=== PATIENT | female | born 1995 | race Caucasian/White ===

== ENCOUNTER 2019-06-28 14:55 | Emergency (ER) | payer BC, SELFPAY ==
[2019-06-28 15:26] LABS: Basophils % 0.4 %; Eosinophils # 0.2 10^3/uL (0.0-0.8); Eosinophils % 2.8 %; Hemoglobin 11.9 g/dL (11.5-15.3); Lymphocytes # 3.7 10^3/uL (0.8-4.8); Lymphocytes % 43.3 %; Mean Corpuscular HGB Conc 33.1 g/dL (30.0-36.0); Mean Corpuscular Hemoglobin 27.9 pg (28.0-34.0); Mean Corpuscular Volume 84.3 fL (81-99); Mean Platelet Volume 8.5 fL (7.4-10.4); Monocytes # 0.8 10^3/uL (0.2-0.9); Monocytes % 9.2 %; Neutrophils # 3.7 10^3/uL (1.8-7.7); Neutrophils % 43.9 %; Nucleated Red Blood Cells % 0 %; Platelet Count 449 10^3/cmm (130-400); Red Blood Count 4.27 10^6/uL (4.1-5.3); Red Cell Distribution Width 13.2 % (12.1-15.1); White Blood Count 8.5 10^3/uL (4.0-10.0)
[2019-06-28 15:30] VITALS: BP 109/75; PULSE 79; RESP 18; TEMP 36.7; O2SAT 98; BMI 36.9
[2019-06-28 15:36] LABS: HCG, Serum Qual Negative (Negative)
[2019-06-28 15:41] LABS: Alanine Aminotransferase 53 U/L (0-33); Albumin Level 4.4 g/dL (3.5-5.2); Alkaline Phosphatase 77 IU/L (35-105); Anion Gap 13.8 (5-19); Aspartate Amino Transferase 29 U/L (0-32); Blood Urea Nitrogen 8 mg/dL (6-20); Calcium 9.5 mg/dL (8.5-10.5); Carbon Dioxide 25 mmol/L (22-29); Chloride 101 mmol/L (98-107); Globulin 3.1 g/dL (1.3-4.6); Glomerular Filtration Rate 154.3 mL/min (90-130); Glucose 90 mg/dL (65-115); Potassium 3.8 mmol/L (3.5-5.1); Sodium 136 mmol/L (136-145); Total Bilirubin 0.3 mg/dL (0.15-1.2); Total Protein 7.5 g/dL (6.6-8.7)
[2019-06-28 16:28] VITALS: BP 125/79; PULSE 78; RESP 15; O2SAT 98
[2019-06-28] MEDS: ondansetron 4 MG Tablet PO (16:39)
--- NOTE | 2019-06-28 16:40 | ED_ITS ---
Entered by Lucía Quijano, acting as scribe for Harvey Duggan MD Jun 28, 2019 14:55 HPI - Female Genitourinary General: Chief complaint: Vaginal Bleeding Stated complaint: VAG BLEEDING, N/DIZZY Time Seen by Provider: 06/28/19 16:35 Source: patient and family Mode of arrival: ambulatory Limitations: no limitations History of Present Illness: HPI Narrative: 23 yo female presents with vaginal bleeding. pt states she has had bleeding since having a baby and breast feeding. pt states she feels tired and having nausea. pt denies any other symptoms at this time. MD elicited complaint: vaginal bleeding Onset (ago): day(s) (4 days) Location of symptoms: vaginal Severity: moderate Quality of pain: cramping and sharp Consistency: constant and progressively worsening Vaginal bleeding: clots Exacerbating factors: none Relieving factors: none Associated symptoms: Reports nausea and other (dizziness); Deny headache(s) Patient : No Date of Last Menstrual Period: 06/28/19 Review of Systems Const: Denies: fever, chills, body aches or change in appetite Eyes: Denies: blurry vision or eye discomfort ENMT: Denies: throat pain or dental pain Card: Denies: chest pain Resp: Denies: shortness of breath GI: Reports: nausea : Reports: vaginal bleeding; Denies: painful urination Musc: Denies: neck pain or back pain Skin/Breast: Denies: rash Neuro: Denies: headache Psych: Denies: depression José/Lymph: Denies: easy bruising All/Imm: Denies: hives PFSH ED PFSH: Social History Smoking and tobacco status: never smoked Female Reproductive History: Date of last menstrual period: 06/28/19 Physical Exam Const: COMMON NORMALS: no apparent distress, oriented x3 and healthy appearing HENMT: COMMON NORMALS: normocephalic and head/scalp atraumatic HEAD & SCALP: normocephalic and atraumatic Eye: COMMON NORMALS: PERRL and EOMs intact bilaterally PUPIL: Yes PERRL Neck/C-Spine: COMMON NORMALS: full ROM and supple Chest: COMMONS NORMALS: inspection of chest normal and palpation of chest normal Resp: COMMON NORMALS: normal respiratory effort, no retractions, no use of accessory muscles and clear to auscultation bilaterally AUSCULTATION: clear to auscultation bilaterally Cardio: COMMON NORMALS: regular rate, regular rhythm and no murmurs RATE: regular rate RHYTHM: regular rhythm : OTHER: Slight amount of blood in vaginal vault with no heavy bleeding or clot Extremity: COMMON NORMALS: normal to inspection and full ROM Neuro: COMMON NORMALS: oriented x3, moves all extremities and no focal motor deficits Psych: COMMON NORMALS: mental status grossly normal, thought process normal and cooperative THOUGHT PROCESS: normal thought process Skin: COMMON NORMALS: no rashes or lesions noted and no wounds GENERAL SKIN EXAM: no rashes or lesions noted Course Vital Signs: Vital signs: Vital Signs Temperature 98.1 F 06/28/19 15:30 Pulse Rate 79 06/28/19 17:01 Respiratory Rate 15 06/28/19 16:28 Blood Pressure 112/79 06/28/19 17:01 Pulse Oximetry 98 06/28/19 16:28 MDM - Female MDM Narrative: Medical decision making narrative: Patient presents here with vaginal bleeding that is likely menstruation. Patient's not and her hemoglobin is normal. Orthostatics are normal. Pelvic showed no large amount of bleeding. I spoke to her PCP she is stable for discharge and is to follow-up with him in 1 to 3 days. She is return to the ER if worsening. She understands and agrees to the plan. Lab Data: Labs: Lab Results 06/28/19 06/28/19 06/28/19 Range/Units 04:13 15:17 15:17 WBC 8.5 (4.0-10.0) 10^3/ uL RBC 4.27 (4.1-5.3) 10^6/u L Hgb 11.9 (11.5-15.3) g/dL Hct 36.0 L (37.0-47.0) % MCV 84.3 (81-99) fL MCH 27.9 L (28.0-34.0) pg MCHC 33.1 (30.0-36.0) g/dL RDW 13.2 (12.1-15.1) % Plt Count 449 H (130-400) 10^3/c mm MPV 8.5 (7.4-10.4) fL Neut % (Auto) 43.9 % Lymph % (Auto) 43.3 % Rusk % (Auto) 9.2 % Eos % (Auto) 2.8 % Baso % (Auto) 0.4 % Neut # (Auto) 3.7 (1.8-7.7) 10^3/u L Lymph # (Auto) 3.7 (0.8-4.8) 10^3/u L Rusk # (Auto) 0.8 (0.2-0.9) 10^3/u L Eos # (Auto) 0.2 (0.0-0.8) 10^3/u L Baso # (Auto) 0.0 (0.0-0.1) 10^3/u L Nucleated RBC % (a uto) 0 % Nucleated RBCs # 0.0 /100WBC Sodium 136 (136-145) mmol/L Potassium 3.8 (3.5-5.1) mmol/L Chloride 101 (98-107) mmol/L Carbon Dioxide 25 (22-29) mmol/L Anion Gap 13.8 (5-19) BUN 8 (6-20) mg/dL Creatinine 0.5 (0.5-0.9) mg/dL GFR Calculation 154.3 H (90-130) mL/min Glucose 90 (65-115) mg/dL Calcium 9.5 (8.5-10.5) mg/dL Total Bilirubin 0.3 (0.15-1.2) mg/dL AST 29 (0-32) U/L ALT 53 H (0-33) U/L Alkaline Phosphata se 77 (35-105) IU/L Total Protein 7.5 (6.6-8.7) g/dL Albumin 4.4 (3.5-5.2) g/dL Globulin 3.1 (1.3-4.6) g/dL HCG, Qual Negative (Negative) Urine Color (Yellow) Urine Appearance (CLEAR) Urine pH (5-7) Ur Specific Gravit y (1.005-1.030) Urine Protein (Negative) Urine Glucose (UA) (Normal) Urine Ketones (Negative) Urine Blood (Negative) Urine Nitrate (Negative) Urine Bilirubin (NEGATIVE) Urine Urobilinogen (Negative) mg/dL Ur Leukocyte Felicitas ase (Negative) Urine RBC (0-2) /hpf Urine WBC (0-5) /hpf Ur Squamous Epith Cells (0-5) Urine Bacteria (NONE) 06/28/19 Range/Units 16:36 WBC (4.0-10.0) 10^3/ uL RBC (4.1-5.3) 10^6/u L Hgb (11.5-15.3) g/dL Hct (37.0-47.0) % MCV (81-99) fL MCH (28.0-34.0) pg MCHC (30.0-36.0) g/dL RDW (12.1-15.1) % Plt Count (130-400) 10^3/c mm MPV (7.4-10.4) fL Neut % (Auto) % Lymph % (Auto) % Rusk % (Auto) % Eos % (Auto) % Baso % (Auto) % Neut # (Auto) (1.8-7.7) 10^3/u L Lymph # (Auto) (0.8-4.8) 10^3/u L Rusk # (Auto) (0.2-0.9) 10^3/u L Eos # (Auto) (0.0-0.8) 10^3/u L Baso # (Auto) (0.0-0.1) 10^3/u L Nucleated RBC % (a uto) % Nucleated RBCs # /100WBC Sodium (136-145) mmol/L Potassium (3.5-5.1) mmol/L Chloride (98-107) mmol/L Carbon Dioxide (22-29) mmol/L Anion Gap (5-19) BUN (6-20) mg/dL Creatinine (0.5-0.9) mg/dL GFR Calculation (90-130) mL/min Glucose (65-115) mg/dL Calcium (8.5-10.5) mg/dL Total Bilirubin (0.15-1.2) mg/dL AST (0-32) U/L ALT (0-33) U/L Alkaline Phosphata se (35-105) IU/L Total Protein (6.6-8.7) g/dL Albumin (3.5-5.2) g/dL Globulin (1.3-4.6) g/dL HCG, Qual (Negative) Urine Color Yellow (Yellow) Urine Appearance Clear (CLEAR) Urine pH 6.5 (5-7) Ur Specific Gravit y 1.015 (1.005-1.030) Urine Protein Neg (Negative) Urine Glucose (UA) Norm (Normal) Urine Ketones Negative (Negative) Urine Blood 3+ H (Negative) Urine Nitrate Negative (Negative) Urine Bilirubin Neg (NEGATIVE) Urine Urobilinogen Norm (Negative) mg/dL Ur Leukocyte Felicitas ase Negative (Negative) Urine RBC 25-40 H (0-2) /hpf Urine WBC None (0-5) /hpf Ur Squamous Epith Cells 0-4 H (0-5) Urine Bacteria 1+ H (NONE) Discharge Plan Discharge Patient Disposition: Home, Self-Care Clinical Impression: Vaginal bleeding Condition: Stable Prescriptions: New Zofran 4 mg tablet 4 mg PO QID PRN (Reason: nausea and vomiting) Qty: 14 RF: 0 No Action divalproex [Depakote] 250 mg Tablet,Delayed Release (Dr/Ec) 250 mg PO DAILY RF: 0 Discharge Orders: Discharge Order (Routine); Ordered 06/28/19 Ordered By: Harvey Duggan Referrals: Kp Etienne MD [Family Provider] - 4-7 days Discharge Diet: Advance as tolerated Discharge Activity: Resume usual activity Patient Instructions: Menstruation (ED) Coding Level of Care Code ED Back Hand for Chg Fwd Exam Comprehensive The documentation recorded by the Samm abreu Bridget Annette, accurately reflects the service I personally performed and the decisions made by Urban encarnacion Korby, MD Jun 28, 2019 14:55
[2019-06-28 17:00] VITALS: BP 115/84; PULSE 77
[2019-06-28 17:01] VITALS: BP 108/74; BP 112/79; PULSE 79
[2019-06-28 17:07] LABS: Urine Appearance Clear (CLEAR); Urine Color Yellow (Yellow)
[2019-06-28 17:08] LABS: Add Urine Microscopic? YES; Bilirubin Urine Neg (NEGATIVE); Blood Urine 3+ (Negative); Glucose Urine UA Norm (Normal); Ketones Urine Negative (Negative); Leukocyte Esterase Urine Negative (Negative); Nitrate Urine Negative (Negative); Protein Urine Neg (Negative); RBC Urine 25-40 /hpf (0-2); Specific Gravity, Urine 1.015 (1.005-1.030); Urobilinogen Urine Norm (Negative); pH Urine 6.5 (5-7)
[2019-06-28 17:09] LABS: Bacteria Urine 1+; Squamous Epithelial Cell Urine 0-4 (0-5)
[2019-06-28 17:10] LABS: Add Urine Culture? Yes
[2019-06-28 17:34] VITALS: BP 115/74; PULSE 71; RESP 16; O2SAT 100
== END 2019-06-28 17:35 | disposition home or self-care (01) ==
PROVIDERS: Physician Assistant; Emergency Provider Emergency Medicine; Family Provider Family Medicine
DX: N93.9 Abnormal uterine and vaginal bleeding, unspecified (principal)
CPT/HCPCS: 36415; 80053; 81001; 84703; 85025; 87086; 99281; 99283; A9270; E0352; Q0162

== ENCOUNTER → 2019-09-25 15:27 | Outpatient (BNVA) | payer OTHER, SELFPAY | PROVIDERS: Family Provider Family Medicine; Visit Provider Nurse Practitioner Family | DX: M25.532 Pain in left wrist (principal) | CPT/HCPCS: 73110 ==

== ENCOUNTER 2019-12-16 06:52 | Emergency (ER) | payer OTHER, SELFPAY ==
[2019-12-16 06:58] VITALS: BP 124/67; PULSE 89; RESP 15; TEMP 36.2; O2SAT 98; BMI 36.0
--- NOTE | 2019-12-16 07:01 | ED_ITS ---
HPI - Headache General: Chief Complaint: Headache Stated Complaint: MIGRAINE Time Seen by Provider: 12/16/19 06:55 Source: patient Mode of arrival: ambulatory Limitations: no limitations History of Present Illness: HPI Narrative: Amber is a nice 24-year-old female who comes in complaining of migraine headaches for the past 2 months. She states that the headache she has now started at 4:00 yesterday and gradually worsened and she cannot get it to stop. She is been seeing her primary care physician for these and he has termed the migraines but she is still scheduled to have an MRI of the brain. Patient denies this being a sudden onset thunderclap type headache. She has no fever or severe neck pain or stiffness. He has nausea but no vomiting. She has light and sound sensitivity. At times it will cause her vision to become blurry. Patient was told if her symptoms ever lasted this long she needed to come to the ER to get checked out. Associated symptoms: Reports nausea; Deny chest pain, confusion, diaphoresis, fever(s), lightheadedness, malaise, pre-syncope, rash, syncope or vomiting Review of Systems Const: Denies: fever(s), chills, body aches, fatigue, malaise or diaphoresis Eyes: Reports: blurry vision; Denies: change in vision, blind spots, photophobia, eye discharge or eye redness ENMT: Denies: throat pain, odynophagia, hoarseness, swelling of lips/tongue, oral sores, ear or mastoid pain, ear discharge, change in hearing or nasal discharge Card: Denies: chest pain, palpitations, irregular heart rhythm, edema, lightheadedness, syncope, pre-syncope, dyspnea on exertion or orthopnea Resp: Denies: dyspnea, productive cough, non-productive cough, wheezing, hemoptysis or chest congestion GI: Reports: nausea; Denies: abdominal pain, vomiting, hematemesis, coffee ground emesis, heartburn, diarrhea, constipation, GI cramping, hematochezia or melena : Denies: flank pain, dysuria, urinary frequency, urinary urgency or hematuria Musc: Denies: neck pain, back pain, extremity pain, extremity swelling, joint pain, joint swelling, joint redness, joint warmth or joint stiffness Skin/Breast: Denies: rash, pruritus, erythema, skin tenderness or jaundice Neuro: Reports: headache(s); Denies: numbness in extremities, weakness in extremities, sensory changes, lack of coordination, difficulty walking, dizziness, vertigo, confusion, Slurred speech present or seizure-like activity José/Lymph: Denies: easy bruising, easy bleeding, petechiae, purpura or enlarged lymph nodes All/Imm: Denies: urticaria, throat swelling, tongue swelling, facial swelling or acute wheezing PFSH ED PFSH: Medical History (Updated 12/16/19 @ 08:09 by Sofia Marsh) No pertinent past medical history Surgical History (Updated 12/16/19 @ 07:03 by Sofia Marsh) S/P tonsillectomy Family History (Updated 12/16/19 @ 07:03 by Sofia Marsh) Other Migraines Social History (Updated 12/16/19 @ 07:03 by Sofia Marsh) Smoking and tobacco status: never smoked Alcohol intake: never Substance/Drug Use: never Female Reproductive History: Date of last menstrual period: 06/28/19 Physical Exam Const: COMMON NORMALS: no acute distress, patient oriented x3, no limitations, healthy appearing and well nourished GENERAL APPEARANCE: cooperative, well kempt and well developed HENMT: COMMON NORMALS: normocephalic, atraumatic, external ears normal, EAC's normal and Normal external nose present HEAD & SCALP: normal to inspection, normocephalic and atraumatic FACE & SINUS: normal facial exam and face symmetric NOSE: Normal external nose present and Normal nares present EXTERNAL EAR: Yes external ears normal EXTERNAL AUDITORY CANAL: EAC's normal MOUTH: Normal oral and palatal mucosa present, lip normal and tongue normal Eye: COMMON NORMALS: Equal, round and reactive pupils present and conjunctivae normal GENERAL EYE: appearance normal, both eyes and all related structures ALIGNMENT: Yes alignment normal PERIORBITAL: periorbital findings normal EYELID: eyelids normal CONJUNCTIVA: Yes conjunctivae normal SCLERA: sclerae normal PUPIL: Yes Equal, round and reactive pupils present Neck/C-Spine: COMMON NORMALS: full ROM, no lymphadenopathy, supple, no meningeal signs and no JVD GENERAL: Yes normal visual inspection and Yes trachea midline Chest: COMMONS NORMALS: normal inspection of the chest and normal palpation of entire chest wall Resp: COMMON NORMALS: normal respiratory effort, No retractions and No use of accessory muscles EFFORT & INSPECTION: Yes able to speak in complete sentences and Yes symmetric chest movement AUSCULTATION: no crackles, no rales, no rhonchi and no wheezes Cardio: COMMON NORMALS: no JVD, regular rate, regular rhythm, S1 normal heart sound present and S2 normal heart sound present RATE: regular rate RHYTHM: regular rhythm HEART SOUNDS: S1 normal heart sound present, S2 normal heart sound present, no click, no gallops, no murmurs, no rubs and abnormal split S2 GI: COMMON NORMALS: Soft to palpation and No hepatosplenomegaly present PALPATION: Yes Soft to palpation, No Tenderness to palpation present (GI), No Guarding due to palpation present (GI), No Rigid due to palpation, Yes No hepatosplenomegaly present, No Hernia present, No Palpable mass present and No Pulsatile mass present : COMMON NORMALS: Yes no CVA tenderness BLADDER/KIDNEY EXAM: Yes no CVA tenderness EXTERNAL FEMALE EXAM: No Hernia present Back/Pelvis: COMMON NORMALS: no CVA tenderness, thoracic and lumbar spine normal to inspection, no thoracic nor lumbar tenderness and thoraco-lumbar ROM normal Extremity: COMMON NORMALS: normal to inspection, full ROM, capillary refill normal, no joint enlargement, no clubbing, cyanosis or edema and no calf tenderness Neuro: COMMON NORMALS: patient oriented x3, CN's II-XII intact bilaterally, moves all extremities, no focal motor deficits and no sensory deficits noted MENINGEAL SIGNS: Yes no meningeal signs SPEECH: speech normal Psych: COMMON NORMALS: mental status grossly normal, Normal thought process present, cooperative, normal affect, speech normal and activity/motor behavior normal APPEARANCE: Yes well kempt SPEECH: Yes normal speech THOUGHT PROCESS: Normal thought process present Skin: COMMON NORMALS: no rashes or lesions noted, turgor normal, no jaundice, no petechiae and no mottling GENERAL SKIN EXAM: no rashes or lesions noted and turgor normal Course Vital Signs: Vital signs: Vital Signs Temperature 97.8 F 12/16/19 08:38 Pulse Rate 76 12/16/19 08:38 Respiratory Rate 20 H 12/16/19 08:38 Blood Pressure 95/55 12/16/19 08:38 Pulse Oximetry 97 12/16/19 08:15 MDM - Headache MDM Narrative: Medical decision making narrative: Arrival -Amber is a 24-year-old female who comes in complaining of a headache lasting just over 12 hours. She is recently diagnosed with migraines and has had this problem for the past 4 months. The patient is able to talk and communicate and does not have a fever. I see no sign of meningitis. This headache was not a sudden onset thunderclap type headache and so I doubt subarachnoid hemorrhage. Because the patient has had new onset headaches I will go ahead and perform imaging of her brain as she has had none up to this point. I will give her typical migraine medications to help with her pain and discomfort. Discharge Yael is a nice 24-year-old female who comes in complaining of a headache that is similar to headache she has had for the past 2 months. She has not had any imaging up to this point but a CT of the head shows no acute intracranial pathology. There is a suggestion of sphenoid sinusitis which I will put her on antibiotics for. Clinically the patient has no sign of subarachnoid hemorrhage or meningitis. I see no evidence of pseudotumor cerebri. The patient is feeling tremendously better and states her headache is completely gone after the migraine cocktail that I have given her. She agrees to follow-up with Dr. Etienne and continue the outpatient work-up for migraine. Lab Data: Labs: Lab Results 12/16/19 12/16/19 12/16/19 Range/Units 07:04 07:04 07:04 WBC 9.1 (4.0-10.0) 10^3/ uL RBC 4.36 (4.1-5.3) 10^6/u L Hgb 11.6 (11.5-15.3) g/dL Hct 36.0 L (37.0-47.0) % MCV 82.6 (81-99) fL MCH 26.6 L (28.0-34.0) pg MCHC 32.2 (30.0-36.0) g/dL RDW 13.2 (12.1-15.1) % Plt Count 502 H (130-400) 10^3/c mm MPV 8.9 (7.4-10.4) fL Neut % (Auto) 43.4 % Lymph % (Auto) 44.9 % Mcnairy % (Auto) 7.5 % Eos % (Auto) 3.4 % Baso % (Auto) 0.6 % Neut # (Auto) 3.94 (1.8-7.7) 10^3/u L Lymph # (Auto) 4.1 (0.8-4.8) 10^3/u L Mcnairy # (Auto) 0.7 (0.2-0.9) 10^3/u L Eos # (Auto) 0.3 (0.0-0.8) 10^3/u L Baso # (Auto) 0.1 (0.0-0.1) 10^3/u L Nucleated RBC % (a uto) 0 % Nucleated RBCs # 0.0 /100WBC Sodium 139 (136-145) mmol/L Potassium 3.9 (3.5-5.1) mmol/L Chloride 104 (98-107) mmol/L Carbon Dioxide 25 (22-29) mmol/L Anion Gap 13.9 (5-19) BUN 12 (6-20) mg/dL Creatinine 0.6 (0.5-0.9) mg/dL GFR Calculation 123.9 (90-130) mL/min Glucose 113 (65-115) mg/dL Calculated Osmolal ity 285 (285-295) mOsm/k g Calcium 9.2 (8.5-10.5) mg/dL Total Bilirubin 0.3 (0.15-1.2) mg/dL AST 28 (0-32) U/L ALT 49 H (0-33) U/L Alkaline Phosphata se 76 (35-105) IU/L Total Protein 7.5 (6.6-8.7) g/dL Albumin 4.5 (3.5-5.2) g/dL Globulin 3.0 (1.3-4.6) g/dL HCG, Qual Negative (Negative) Urine Color (Yellow) Urine Appearance (CLEAR) Urine pH (5-7) Ur Specific Gravit y (1.005-1.030) Urine Protein (Negative) Urine Glucose (UA) (Normal) Urine Ketones (Negative) Urine Blood (Negative) Urine Nitrate (Negative) Urine Bilirubin (NEGATIVE) Urine Urobilinogen (Negative) mg/dL Ur Leukocyte Felicitas ase (Negative) Urine RBC (0-2) /hpf Urine WBC (0-5) /hpf Ur Squamous Epith Cells (0-5) Amorphous Sediment Urine Bacteria (NONE) 12/16/19 Range/Units 08:07 WBC (4.0-10.0) 10^3/ uL RBC (4.1-5.3) 10^6/u L Hgb (11.5-15.3) g/dL Hct (37.0-47.0) % MCV (81-99) fL MCH (28.0-34.0) pg MCHC (30.0-36.0) g/dL RDW (12.1-15.1) % Plt Count (130-400) 10^3/c mm MPV (7.4-10.4) fL Neut % (Auto) % Lymph % (Auto) % Mcnairy % (Auto) % Eos % (Auto) % Baso % (Auto) % Neut # (Auto) (1.8-7.7) 10^3/u L Lymph # (Auto) (0.8-4.8) 10^3/u L Mcnairy # (Auto) (0.2-0.9) 10^3/u L Eos # (Auto) (0.0-0.8) 10^3/u L Baso # (Auto) (0.0-0.1) 10^3/u L Nucleated RBC % (a uto) % Nucleated RBCs # /100WBC Sodium (136-145) mmol/L Potassium (3.5-5.1) mmol/L Chloride (98-107) mmol/L Carbon Dioxide (22-29) mmol/L Anion Gap (5-19) BUN (6-20) mg/dL Creatinine (0.5-0.9) mg/dL GFR Calculation (90-130) mL/min Glucose (65-115) mg/dL Calculated Osmolal ity (285-295) mOsm/k g Calcium (8.5-10.5) mg/dL Total Bilirubin (0.15-1.2) mg/dL AST (0-32) U/L ALT (0-33) U/L Alkaline Phosphata se (35-105) IU/L Total Protein (6.6-8.7) g/dL Albumin (3.5-5.2) g/dL Globulin (1.3-4.6) g/dL HCG, Qual (Negative) Urine Color Yellow (Yellow) Urine Appearance Sl hazy (CLEAR) Urine pH 5 (5-7) Ur Specific Gravit y 1.010 (1.005-1.030) Urine Protein Neg (Negative) Urine Glucose (UA) Norm (Normal) Urine Ketones Negative (Negative) Urine Blood Neg (Negative) Urine Nitrate Negative (Negative) Urine Bilirubin Neg (NEGATIVE) Urine Urobilinogen Norm (Negative) mg/dL Ur Leukocyte Felicitas ase 1+ H (Negative) Urine RBC None (0-2) /hpf Urine WBC 15-25 H (0-5) /hpf Ur Squamous Epith Cells 15-25 H (0-5) Amorphous Sediment Not Reportable Urine Bacteria 2+ H (NONE) Imaging Data^: CT Head: Radiologist's impression: [place] [address] CT Scan Report Signed Patient: Amber Walker Unit #: [id number] : 1995 Age/Sex: 24 / F ADM Date: 12/16/19 Loc: ER Room/Bed: Attending Dr: Ordering Provider/Ordering MD: Sofia Marsh DO Date of Service: 12/16/19 Procedure(s): CT head wo con* [id number] Accession Number(s): [id number] Report Number: [id number] PROCEDURE INFORMATION: Exam: CT Head Without Contrast Exam date and time: 12/16/2019 7:01 AM Age: 24 years old Clinical indication: Pain; Headache; Migraine; Aura effect not specified; Other: Unknown; Additional info: New onset headaches TECHNIQUE: Imaging protocol: Computed tomography of the head without contrast. Radiation optimization: All CT scans at this facility use at least one of these dose optimization techniques: automated exposure control; mA and/or kV adjustment per patient size (includes targeted exams where dose is matched to clinical indication); or iterative reconstruction. COMPARISON: No relevant prior studies available. RADIATION DOSE METRICS: Total DLP (mGy-cm): 789.35 FINDINGS: Brain: Symmetric caliber of the cortical sulci. Normal simpson-white matter differentiation. No acute cortical infarct, mass effect, or intracranial hemorrhage. Ventricles: Normal configuration of the ventricles. Bones/joints: No acute calvarial pathology. Sinuses: Inflammatory change in the right sphenoid sinus. Mastoid air cells: No mastoid effusion. Soft tissues: Unremarkable soft tissues. CT/CT head wo con* [id number] IMPRESSION: Sphenoid sinusitis, without acute intracranial pathology. Radiation Dose CTDIVOL = (mGy): DLP = 789.35 (mGy-cm) Dictated By: Yariel Shanks MD Signed By: Yariel Shanks MD Signed Date/Time: 12/16/19801 DD/ 0 Discharge Plan Discharge Patient Disposition: Home Clinical Impression: Migraine Qualifiers: Migraine type: unspecified Status migrainosus presence: with status migrainosus Intractability: not intractable Qualified Code(s): G43.901 - Migraine, unspecified, not intractable, with status migrainosus Sinusitis Qualifiers: Sinusitis location: sphenoidal Chronicity: subacute Qualified Code(s): J01.30 - Acute sphenoidal sinusitis, unspecified Condition: Stable Discharge Orders: Discharge Order (Routine); Ordered 12/16/19 Ordered By: Sofia Marsh Referrals: Kp Etienne MD [Primary Care Provider] - 1-3 days Discharge Diet: Advance as tolerated Discharge Activity: Increase activity as tolerated Patient Instructions: Sinusitis (ED), Migraine Headache (ED), Acute Headache (ED) Activity Restrictions/Additional Instructions: Please return to the ER immediately for any of the signs or symptoms listed on your discharge instruction sheets, worsening/changing of your symptoms, you are not getting better as quickly as expected, or for ANY other cause or concerns. Please return to the ER immediately for any of the signs and or symptoms listed on your discharge instruction sheet or for any other cause for concern. Discharge Date/Time: 12/16/19 08:40 Coding Level of Care Code ED Service Administrator for Chg Fwd Exam Comprehensive
[2019-12-16 07:08] VITALS: BP 124/67; PULSE 88; RESP 18; O2SAT 97
[2019-12-16 07:14] LABS: Basophils # 0.1 10^3/uL (0.0-0.1); Basophils % 0.6 %; Eosinophils # 0.3 10^3/uL (0.0-0.8); Eosinophils % 3.4 %; Hemoglobin 11.6 g/dL (11.5-15.3); Lymphocytes # 4.1 10^3/uL (0.8-4.8); Lymphocytes % 44.9 %; Mean Corpuscular HGB Conc 32.2 g/dL (30.0-36.0); Mean Corpuscular Hemoglobin 26.6 pg (28.0-34.0); Mean Corpuscular Volume 82.6 fL (81-99); Mean Platelet Volume 8.9 fL (7.4-10.4); Monocytes # 0.7 10^3/uL (0.2-0.9); Monocytes % 7.5 %; Neutrophils # 3.94 10^3/uL (1.8-7.7); Neutrophils % 43.4 %; Nucleated Red Blood Cells % 0 %; Platelet Count 502 10^3/cmm (130-400); Red Blood Count 4.36 10^6/uL (4.1-5.3); Red Cell Distribution Width 13.2 % (12.1-15.1); White Blood Count 9.1 10^3/uL (4.0-10.0)
[2019-12-16] MEDS: metoclopramide 5 mg/mL SDV 2 mL 10 MG IV (07:29)
[2019-12-16] MEDS: diphenhydrAMINE 50 mg/mL SDV 1mL IVP (07:29)
[2019-12-16] MEDS: sodium chloride 0.9% 1,000 ML 100 ML IV (07:30)
[2019-12-16 07:40] LABS: HCG, Serum Qual Negative (Negative)
[2019-12-16 07:48] LABS: Alanine Aminotransferase 49 U/L (0-33); Albumin Level 4.5 g/dL (3.5-5.2); Alkaline Phosphatase 76 IU/L (35-105); Anion Gap 13.9 (5-19); Aspartate Amino Transferase 28 U/L (0-32); Blood Urea Nitrogen 12 mg/dL (6-20); Calcium 9.2 mg/dL (8.5-10.5); Carbon Dioxide 25 mmol/L (22-29); Chloride 104 mmol/L (98-107); Glomerular Filtration Rate 123.9 mL/min (90-130); Glucose 113 mg/dL (65-115); Osmolality Calculated 285 mOsm/kg (285-295); Potassium 3.9 mmol/L (3.5-5.1); Sodium 139 mmol/L (136-145); Total Bilirubin 0.3 mg/dL (0.15-1.2); Total Protein 7.5 g/dL (6.6-8.7)
[2019-12-16 08:15] VITALS: BP 106/54; PULSE 91; RESP 18; O2SAT 97
[2019-12-16] MEDS: levoFLOXacin 500 mg Tablet PO (08:15)
[2019-12-16 08:22] LABS: Add Urine Microscopic? YES; Bilirubin Urine Neg (NEGATIVE); Blood Urine Neg (Negative); Glucose Urine UA Norm (Normal); Ketones Urine Negative (Negative); Leukocyte Esterase Urine 1+ (Negative); Nitrate Urine Negative (Negative); Protein Urine Neg (Negative); Urine Appearance SL Hazy (CLEAR); Urine Color Yellow (Yellow); Urobilinogen Urine Norm (Negative); pH Urine 5 (5-7)
[2019-12-16 08:26] LABS: Add Urine Culture? No; Bacteria Urine 2+; Squamous Epithelial Cell Urine 15-25 (0-5); WBC Urine 15-25 /hpf (0-5)
[2019-12-16 08:38] VITALS: BP 95/55; PULSE 76; RESP 20; TEMP 36.6
== END 2019-12-16 08:40 | disposition home or self-care (01) ==
PROVIDERS: Emergency Provider Emergency Medicine; PCP Family Medicine
DX: G43.901 Migraine, unspecified, not intractable, with status migrainosus (principal); J01.30 Acute sphenoidal sinusitis, unspecified
CPT/HCPCS: 12345; 70450; 80053; 81001; 84703; 85025; 96361; 96374; 96375; 99283; J0131; J1200; J2765; J7030

== ENCOUNTER → 2020-01-15 11:49 | Outpatient (BNVA) | payer SELFPAY | PROVIDERS: PCP Family Medicine; Visit Provider Internal Medicine | DX: J06.9 Acute upper respiratory infection, unspecified (principal) | CPT/HCPCS: 87635 ==

== ENCOUNTER 2020-02-01 13:41 | Outpatient (CLI) | payer OTHER, SELFPAY ==
--- NOTE | 2020-02-01 13:49 | US_ITS ---
WS: [id number] OB ultrasound, 02/01/2020 Clinical Data: SUPERVISION NORMAL Comparison: None. Findings: There is a single interuterine . heart rate is 131 beats per minute. There is a 0.48 cm yolk sac present. The crown-rump length measured 0.9 cm and the gestational sac cm . The estimated gestational age 6w6d is with an GUNJAN of approximately 09/20/2020. The left ovary was not imaged The right ovary measured 2.14 cm with a 1.64 cm cyst. There is no fluid in the cul-de-sac. US/US OB <= 14 weeks fetus [id number] Impression: 1. Single interuterine . 2. Estimated gestational age of 6w6d with an GUNJAN of 09/20/2020. 3. heart rate 131 beats per minute.
== END 2020-02-01 13:42 | disposition home or self-care (01) ==
LOC: US 13:44
PROVIDERS: PCP Family Medicine; Visit Provider Family Medicine
DX: Z34.91 Encounter for supervision of normal pregnancy, unspecified, first trimester; Z3A.01 Less than 8 weeks gestation of pregnancy
CPT/HCPCS: 76801

== ENCOUNTER 2020-03-04 07:33 | Emergency (ER) | payer OTHER, SELFPAY ==
[2020-03-04 07:36] VITALS: BP 148/83; PULSE 124; RESP 20; TEMP 36.5; O2SAT 97; BMI 36.3
--- NOTE | 2020-03-04 07:56 | XR_ITS ---
WS: [id number] PORTABLE CHEST HISTORY: dyspnea/cough COMPARISON: 06/26/2006 Lungs are clear and well expanded. No pleural effusion or pneumothorax. Cardiac size: Normal. Mediastinum/Aorta: Normal mediastinum. No osseous abnormality seen. XR/XR chest 1V portable [id number] IMPRESSION: Unremarkable portable chest.
--- NOTE | 2020-03-04 08:12 | ED_ITS ---
HPI - SOB/Dyspnea General: Chief Complaint: Shortness of Breath/Dyspnea Stated Complaint: Asthma Time Seen by Provider: 03/04/20 07:36 History of Present Illness: HPI Narrative: 24-year-old female presents emergency room complaining of shortness of breath and wheezing. She has a history of asthma triggered largely by specific allergens one of her allergens is dog she was exposed to a dog yesterday and noticed significant worsening. She did try an albuterol treatment before coming in which she felt helped some but did not relieve it completely. She has not had a fever and not had a productive cough. Patient tested positive in early January by PCR for Covid it is in her chart here at the hospital and confirmed at the time the visit today. MD elicited complaint: shortness of breath, cough and asthma attack Pertinent past history: asthma Onset (ago): hour(s) Context: allergen exposure (Dogs) Timing: constant Severity: moderate Exacerbating factors: exertion and coughing Relieving factors: rest and bronchodilators Known history of: asthma Associated symptoms: Deny abdominal pain, chest congestion, chest pain, cough, diaphoresis, dizziness, extremity pain, fever(s), hemoptysis, lightheadedness, myalgias, nausea, orthopnea, palpitations, paresthesias, polydipsia, polyuria, rash, sense of impending doom, syncope or vomiting Treatment prior to arrival: bronchodilator Review of Systems Const: Denies: fever(s) or diaphoresis ENMT: Denies: throat pain, ear or mastoid pain, nasal discharge or nasal congestion Card: Denies: chest pain, palpitations, lightheadedness, syncope or orthopnea Resp: Denies: hemoptysis or chest congestion GI: Denies: abdominal pain, nausea or vomiting : Denies: flank pain, difficulty voiding, dysuria, urinary frequency or urinary urgency Musc: Denies: extremity pain Skin/Breast: Denies: rash or pruritus Neuro: Denies: dizziness Endo: Denies: polyuria or polydipsia PFSH ED PFSH: Medical History No pertinent past medical history Surgical History S/P tonsillectomy Family History Other Migraines Social History Smoking and tobacco status: never smoked Alcohol intake: never Female Reproductive History: Date of last menstrual period: 06/28/19 Physical Exam Const: COMMON NORMALS: no acute distress GENERAL APPEARANCE: cooperative and comfortable ORIENTATION/CONSCIOUSNESS: Yes awake, Yes oriented to person, Yes oriented to place and Yes oriented to time HENMT: COMMON NORMALS: normocephalic, atraumatic and hearing grossly normal bilaterally HEAD & SCALP: normocephalic and atraumatic Resp: AUSCULTATION: wheezes expiratory wheezes (Mild diffuse) Cardio: COMMON NORMALS: regular rate, regular rhythm and No murmurs present (Cardio) RATE: regular rate RHYTHM: regular rhythm GI: COMMON NORMALS: Soft to palpation and No hepatosplenomegaly present AUSCULTATION: Yes normoactive bowel sounds PALPATION: Yes Soft to palpation, No Tenderness to palpation present (GI), No Guarding due to palpation present (GI) and Yes No hepatosplenomegaly present Extremity: COMMON NORMALS: normal to inspection, capillary refill normal, no clubbing, cyanosis or edema, no calf tenderness and no pedal edema Neuro: SENSORIUM/ORIENTATION: Yes oriented to person, Yes oriented to place and Yes oriented to time Skin: COMMON NORMALS: no rashes or lesions noted GENERAL SKIN EXAM: no rashes or lesions noted Course Vital Signs: Vital signs: Vital Signs Temperature 97.7 F 03/04/20 07:36 Pulse Rate 103 H 03/04/20 09:47 Respiratory Rate 16 03/04/20 09:47 Blood Pressure 112/76 03/04/20 09:47 Pulse Oximetry 98 03/04/20 09:47 MDM - SOB/Dyspnea MDM Narrative: Medical decision making narrative: On reexam wheezes of largely resolved patient states she feels much better will discharge home on prednisone and albuterol inhaler to use as needed can also use [id number] cetirizine or Benadryl. She states she rather not take anything sedative because she has children to care for advised her to use his cetirizine can use it up to 10 mg twice daily. Discharge Plan Discharge Patient Disposition: Home Clinical Impression: Asthma with exacerbation Condition: Stable Prescriptions: New prednisone 10 mg tablet 10 mg PO BID Qty: 10 RF: 0 albuterol sulfate 90 mcg/actuation HFA aerosol inhaler 2 inh INHALATION Q4H PRN (Reason: shortness of breath or wheezing) Qty: 18 RF: 0 No Action Tylenol Extra Strength 500 mg Tablet 1,000 mg PO PRN RF: 0 Benadryl 25 mg Capsule 25 mg PO TID PRN (Reason: unknown) RF: 0 ProAir HFA 90 mcg/actuation Hfa Aerosol Inhaler 1 - 2 puff INHALATION Q4H PRN (Reason: Shortness Of Breath) RF: 0 Gummies 400 mcg-35 mg- 25 mg-5 mg Tablet,Chewable 2 tab PO DAILY RF: 0 Discharge Orders: Discharge Order (Routine); Ordered 03/04/20 Ordered By: Kash Kulkarni Referrals: Kp Etienne MD [Primary Care Provider] - Discharge Diet: Usual diet Discharge Activity: Increase activity as tolerated Discharge Date/Time: 03/04/20 09:47 Coding Level of Care Code ED Data Integration Architect for Chg Fwd Exam Detailed
[2020-03-04] MEDS: famotidine 20 mg/2 mL INJ 40 MG IVP (08:13)
[2020-03-04] MEDS: ipratropium-albuterol 3 mL Neb INHALATION (08:19)
[2020-03-04 08:22] VITALS: PULSE 102; RESP 22; O2SAT 94
[2020-03-04 08:24] VITALS: PULSE 107
[2020-03-04 09:47] VITALS: BP 112/76; PULSE 103; RESP 16; O2SAT 98
== END 2020-03-04 09:47 | disposition home or self-care (01) ==
PROVIDERS: Emergency Provider Family Medicine; PCP Family Medicine
DX: J45.901 Unspecified asthma with (acute) exacerbation (principal)
CPT/HCPCS: 12345; 71045; 94640; 96374; 96375; 99283; J2930; J3490

== ENCOUNTER 2020-04-28 10:57 | Outpatient (CLI) | payer OTHER, SELFPAY ==
--- NOTE | 2020-04-28 | US_ITS ---
WS: [id number] OBSTETRICAL ULTRASOUND COMPLETE HISTORY: ANATOMY COMPARISON: 02/01/2020 Overall quality of this examination is limited by body habitus. Single intrauterine gestation in breech presentation. Cervix is Closed and normal length. Cervical length is 4.4 cm. Normal amount of amniotic fluid surrounds the fetus. Placenta: Posterior, Placenta grade 1 Heart: 153 BPM. Limited evaluation of the heart. There is a four-chamber heart and normal position an d axis. Outflow chambers are very poorly limited. Anatomy: Intracranial structures and spine are normal. kidneys, stomach and urinary bladd er are unremarkable. Abdominal wall, three-vessel cord and cord insertion site are normal. 4 extremities are present. profile: Not well visualized. Gender: Probable female. measurements: BPD = 4.2 cm = 18w5d HC = 17.0 cm = 19w4d AC = 14.0 cm = 19w3d FL = 3.0 cm = 19w2d EFW: 287 g. Biometry is internally concordant. AGA by ultrasound: 19w2d GUNJAN by ultrasound: 09/20/2020 Appropriate growth since the prior ultrasound. US/US OB >= 14 weeks fetus [id number] IMPRESSION: 1. Single intrauterine gestation of 19w2d with an GUNJAN of 09/20/2020. 2. Quality of the anatomy is limited by body habitus. Limited visualization of the heart and profile. No abnormalities are identified but quality is li mited by body habitus. 3. Appropriate growth of the fetus since the prior examination of 02/01/2020.
== END 2020-04-28 10:58 | disposition home or self-care (01) ==
LOC: RAD 11:02
PROVIDERS: PCP Family Medicine; Visit Provider Family Medicine
DX: Z36.89 Encounter for other specified antenatal screening (principal); Z3A.19 19 weeks gestation of pregnancy
CPT/HCPCS: 76805

== ENCOUNTER 2020-05-15 14:57 | Outpatient (CLI) | payer OTHER, SELFPAY ==
--- NOTE | 2020-05-15 15:04 | US_ITS ---
WS: [id number] ULTRASOUND OB FOCUSED HISTORY: FOLLOW UP US ON THE HEART, PROFILE COMPARISON: 04/28/2020 Single intrauterine gestation in cephalic presentation. Cervix is closed at 3.9 cm. Placenta is poste rior with no previa or abruption. Placenta grade 1. heart rate at 153 BPM. Four-chamber heart is identified. Normal rotation of the heart. Outflow tracts are also normal. profile is [place]. [place] [id number] IMPRESSION: Follow-up imaging the heart and profile demonstrates no abnormality.
== END 2020-05-15 14:58 | disposition home or self-care (01) ==
LOC: RAD 15:00
PROVIDERS: PCP Family Medicine; Visit Provider Family Medicine
DX: Z34.80 Encounter for supervision of other normal pregnancy, unspecified trimester (principal)
CPT/HCPCS: 76816

== ENCOUNTER → 2020-06-03 14:32 | Outpatient (BNVA) | payer OTHER, SELFPAY | PROVIDERS: PCP Family Medicine; Visit Provider Psychiatry & Neurology Psychiatry | DX: F43.12 Post-traumatic stress disorder, chronic (principal); F41.1 Generalized anxiety disorder; F43.9 Reaction to severe stress, unspecified; F33.1 Major depressive disorder, recurrent, moderate | CPT/HCPCS: 99204 ==

== ENCOUNTER → 2020-06-30 07:43 | Outpatient (BNVA) | payer OTHER, SELFPAY | PROVIDERS: PCP Family Medicine; Visit Provider Psychiatry & Neurology Psychiatry | DX: F33.1 Major depressive disorder, recurrent, moderate (principal); F41.1 Generalized anxiety disorder; F43.12 Post-traumatic stress disorder, chronic; F43.9 Reaction to severe stress, unspecified | CPT/HCPCS: 99214 ==

== ENCOUNTER → 2020-08-14 11:54 | Outpatient (BNVA) | payer OTHER, SELFPAY | PROVIDERS: PCP Family Medicine; Visit Provider Counselor Professional | DX: F33.1 Major depressive disorder, recurrent, moderate (principal); F41.1 Generalized anxiety disorder; F43.12 Post-traumatic stress disorder, chronic | CPT/HCPCS: 90834 ==

== ENCOUNTER → 2020-08-19 10:51 | Outpatient (BNVA) | payer OTHER, SELFPAY | PROVIDERS: PCP Family Medicine; Visit Provider Psychiatry & Neurology Psychiatry | DX: F33.1 Major depressive disorder, recurrent, moderate (principal); F41.1 Generalized anxiety disorder; F43.12 Post-traumatic stress disorder, chronic | CPT/HCPCS: 99214 ==

== ENCOUNTER → 2020-08-26 09:56 | Outpatient (BNVA) | payer OTHER, SELFPAY | PROVIDERS: PCP Family Medicine; Visit Provider Counselor Professional | DX: F33.1 Major depressive disorder, recurrent, moderate (principal); F41.1 Generalized anxiety disorder; F43.12 Post-traumatic stress disorder, chronic | CPT/HCPCS: 90834 ==

== ENCOUNTER → 2020-09-03 09:54 | Outpatient (BNVA) | payer OTHER, SELFPAY | PROVIDERS: PCP Family Medicine; Visit Provider Counselor Professional | DX: F33.1 Major depressive disorder, recurrent, moderate (principal); F41.1 Generalized anxiety disorder; F43.12 Post-traumatic stress disorder, chronic | CPT/HCPCS: 90834; 90839 ==

== ENCOUNTER → 2020-09-10 09:59 | Outpatient (BNVA) | payer OTHER, SELFPAY | PROVIDERS: PCP Family Medicine; Visit Provider Counselor Professional | DX: F33.1 Major depressive disorder, recurrent, moderate (principal); F41.1 Generalized anxiety disorder; F43.12 Post-traumatic stress disorder, chronic | CPT/HCPCS: 90834 ==

== ENCOUNTER 2020-09-16 11:32 | Outpatient (CLI) | payer OTHER, SELFPAY ==
[2020-09-16 12:19] LABS: Total Volume, Urine 700 mL
[2020-09-16 12:59] LABS: Total Protein 24 Hour Urine 261.8 mg/24HR (0-150); Urine Total Protein 24 Hour 37.4 mg/dL (0-150)
== END 2020-09-16 11:33 | disposition home or self-care (01) ==
PROVIDERS: PCP Family Medicine; Visit Provider Family Medicine
DX: O09.90 Supervision of high risk pregnancy, unspecified, unspecified trimester (principal); O13.9 Gestational [pregnancy-induced] hypertension without significant proteinuria, unspecified trimester
CPT/HCPCS: 84156

== ENCOUNTER 2020-09-16 22:12 | Inpatient (IN) | payer OTHER, SELFPAY ==
[2020-09-16 22:52] VITALS: BP 136/88; PULSE 85; TEMP 36.3
[2020-09-16 23:00] VITALS: BMI 39.6
[2020-09-16 23:29] VITALS: RESP 18
[2020-09-16 23:47] LABS: Basophils % 0.3 %; Eosinophils # 0.1 10^3/uL (0.0-0.8); Eosinophils % 1.1 %; Hematocrit 33.2 % (37.0-47.0); Hemoglobin 11.2 g/dL (11.5-15.3); Mean Corpuscular HGB Conc 33.7 g/dL (30.0-36.0); Mean Corpuscular Hemoglobin 29.9 pg (28.0-34.0); Mean Corpuscular Volume 88.8 fL (81-99); Mean Platelet Volume 10.2 fL (7.4-10.4); Monocytes # 0.9 10^3/uL (0.2-0.9); Monocytes % 8.3 %; Neutrophils # 6.62 10^3/uL (1.8-7.7); Neutrophils % 61.8 %; Nucleated Red Blood Cells % 0 %; Platelet Count 362 10^3/cmm (130-400); Red Blood Count 3.74 10^6/uL (4.1-5.3); Red Cell Distribution Width 13.2 % (12.1-15.1); White Blood Count 10.7 10^3/uL (4.0-10.0)
[2020-09-16 23:54] VITALS: BP 132/83; PULSE 76
[2020-09-17] VITALS (38 sets, daily range): BP systolic 115–171; BP diastolic 60–104; PULSE 56–107; RESP 17–18; TEMP 35.8–36.8
[2020-09-17 00:19] LABS: Alanine Aminotransferase 22 U/L (0-33); Albumin Level 3.5 g/dL (3.5-5.2); Alkaline Phosphatase 143 IU/L (35-105); Anion Gap 13.3 (5-19); Aspartate Amino Transferase 17 U/L (0-32); Blood Urea Nitrogen 11 mg/dL (6-20); Calcium 8.6 mg/dL (8.5-10.5); Carbon Dioxide 22 mmol/L (22-29); Chloride 105 mmol/L (98-107); Globulin 2.7 g/dL (1.3-4.6); Glomerular Filtration Rate 197.8 mL/min (90-130); Glucose 95 mg/dL (65-115); Osmolality Calculated 281 mOsm/kg (285-295); Potassium 4.3 mmol/L (3.5-5.1); Sodium 136 mmol/L (136-145); Total Bilirubin 0.2 mg/dL (0.15-1.2); Total Protein 6.2 g/dL (6.6-8.7)
[2020-09-17 00:20] LABS: Add Urine Microscopic? YES; Bilirubin Urine Neg (Negative); Blood Urine 3+ (Negative); Glucose Urine UA Norm (Normal); Ketones Urine Negative (Negative); Leukocyte Esterase Urine Negative (Negative); Nitrate Urine Negative (Negative); Protein Urine Trace (Negative); Urine Appearance Clear (CLEAR); Urine Color Yellow (Yellow); Urobilinogen Urine Norm (Negative); pH Urine 6 (5-7)
[2020-09-17 00:21] LABS: Add Urine Culture? No; Squamous Epithelial Cell Urine 15-25 /hpf (0-5); WBC Urine 0-4 /hpf (0-5)
[2020-09-17] MEDS: miSOPROStol 100 mcg tablet 25 MCG VAGINAL ×3 (00:34→08:50)
[2020-09-17] MEDS: alum-mag-hydroxide-sime 30 mL UDC PO (01:07)
[2020-09-17] MEDS: dextrose 5%-lactated ringers 1,000 ML 125 ML IV ×2 (07:00→14:19)
[2020-09-17] MEDS: ampicillin 2,000 MG in sodium chloride 0.9% (plus) 50 ML 100 MG IV (07:00)
[2020-09-17] MEDS: sodium chloride 0.9 % (flush) syringe 10 mL 2 ML IV (07:01)
--- NOTE | 2020-09-17 08:41 | PM.HP ---
Providers/Chief Complaint Admitting Physician: Kp Etienne MD Primary Care Provider: Kp Etienne MD Chief Complaint: induction History of Present Illness Amber Walker is a 24 year old at 39.3 weeks gestation by 6-week ultrasound inconsistent with LMP. Her is complicated by Covid during first trimester, history of preeclampsia now with gestational hypertension without severe features, anxiety on sertraline, anemia now resolved, GBS positive. The patient presented to labor and delivery on the evening of 09/16/2020 for a scheduled induction secondary to gestational hypertension. The patient's blood pressures have been running in the 130s to 140s systolic over 80s to 90s diastolic. She has not had any headaches, flashes of light or nausea. The patient had a 24-hour urine protein done on 09/10/2020 that was 252. A repeat done on 09/15/2020 was 261. I discussed with the patient the risks and benefits of continuing the versus induction of labor and she agreed to proceed with induction of labor to decrease the chances of proceeding on to preeclampsia. The patient was given Cytotec overnight due to having a cervical exam of /-3. The patient has been apty irregularly. She would like to go without pain medication if possible. Medications/Allergies Home Medications Medication Instructions Recorded Confirmed Last Taken Type albuterol sulfate 2 inh INHALATION Q4H PRN #18 gm 03/04/20 08/19/20 Unknown Rx albuterol sulfate [ProAir HFA] 1 - 2 puff INHALATION Q4H PRN 03/04/20 08/19/20 03/04/20 06:30 History 1 puff silver sulfadiazine 1 % topical 1 applic TOPICAL BID 14 Days #20 g 04/10/20 04/24/20 Unknown Rx cream aspirin 81 mg tablet,delayed 81 mg PO .HS tab 06/03/20 08/19/20 Unknown History release hydroxyzine HCl 50 mg tablet 50 mg PO BID PRN #60 tab 09/12/20 Unknown Rx sertraline 100 mg tablet 100 mg PO DAILY #30 tab 09/12/20 Unknown Rx Allergies Allergy/AdvReac Type Severity Reaction Status Date / Time cephalexin [From Keflex] Allergy Intermediate Bodywide Verified 08/19/20 10:57 pain PFSH Acute PFSH: Medical History (Updated 09/17/20 @ 18:18 by Kp Etienne MD) No pertinent past medical history Surgical History S/P tonsillectomy Family History Other Migraines Social History Smoking and tobacco status: never smoked Alcohol intake: never Current gender identity: Female Female Reproductive History: Date of last menstrual period: 06/28/19 : 4 Vitals/I&O/Wt Last Vital Signs Temp 97.3 F L 09/16/20 22:52 Pulse 81 09/17/20 07:39 Resp 18 09/17/20 07:40 BP 132/86 09/17/20 07:39 09/16/20 09/17/20 09/17/20 22:59 06:59 14:59 Intake Total 50 / 50 Balance 50 / 50 Weight last 48 hrs Weight 246 lb Physical Exam Narrative: EXAM NARRATIVE: General: Alert and oriented x3 Eyes: Pupils equal round and reactive to light and accommodation Mouth: Mucous membranes moist, pharynx non-erythematous Cardiac: Regular rate and rhythm without murmurs Lungs: Clear to auscultation bilaterally without wheezes, crackles or rhonchi Abdomen: Soft, non-tender, fundus consistent with gestational age Extremities: Trace edema in the bilateral lower extremities Data : 09/16/20 22:45 09/16/20 23:50 A&P Additional A&P Information The patient is doing well at this time. Her blood pressures have been well controlled. She is having no signs of severe gestational hypertension. Her 24-hour urine protein was 261 on 09/15/2020. The patient has received 2 doses of Cytotec and we will monitor for further change. Currently she is doing well. I had a discussion with the patient prior to induction regarding the risks and benefits of induction and the recommendations to induce since she has gestational hypertension. The patient has been in agreement with the current plan of care. The patient is GBS positive and has received her first dose of ampicillin. All all questions were answered. Continue with induction of labor. Attestations Medical Necessity Statement*: The patient will be here for greater than 2 midnights intrapartum and management of labor and delivery. Coding Level of Care Code Acute Food Counter Attendant for Rickey Ansari
[2020-09-17] MEDS: ampicillin 1,000 MG in sodium chloride 0.9% (plus) 50 ML 100 MG IV ×3 (11:17→19:00)
[2020-09-17] MEDS: oxytocin 30 UNIT/500 ML BAG 4 UNIT IV (14:17)
[2020-09-17] MEDS: ondansetron 2 mg/ML SDV 2 mL 4 MG IVP (18:03)
--- NOTE | 2020-09-17 21:00 | PM.DELIVERY ---
Delivery Note: Date of delivery: September 17, 2020 Pre-delivery diagnoses: 1. Intrauterine at 39.3 weeks gestation 2. GBS positive 3. Gestational hypertension without severe features 4. Anxiety on sertraline 5. COVID-19 infection during first trimester Post-delivery diagnoses: 1. Intrauterine status post spontaneous vaginal delivery at 39.3 weeks gestation 2. GBS positive 3. Gestational hypertension without severe features 4. Anxiety on sertraline 5. COVID-19 infection during first trimester 6. Delivery of healthy female weighing 7 pounds 4 ounces with Apgars of 6 and 8 Procedure: Spontaneous vaginal delivery Op report anesthesia: None Estimated blood loss (mL): 200 Findings: Healthy infant female weighing 7 pounds 4 ounces with Apgars of 6 and 8 Pre-Delivery Course: The patient presented to labor and delivery for induction of labor secondary to gestational hypertension on the evening of 09/16/2020. She was given Cytotec x3 doses and her cervix changed to 2 cm dilation. IV Pitocin was started and she made change to 4 cm. Her labor was stalling, so AROM was performed at 1800 on 09/17/2020. Clear fluid was noted. From this point the patient continued to make more rapid change and was complete by 2027 on 09/17/2020. Delivery: The patient began pushing at 2028 on 09/17/2020 and the infant descended rapidly. The infant was born in the OA position at 2028 on 09/17/2020. A nuchal cord was present and reduced. The left shoulder was the anterior shoulder and it delivered with downward pressure. The rest the delivered with ease. The mouth and nose were bulb suctioned by myself and the infant was placed on the mother's chest. The was initially blue and had little respiratory effort. The cord was clamped by myself and cut by the 's mother. The infant was taken to the warmer. Cord blood was obtained and the cord was drained of blood. Traction was placed on the cord and uterine massage was done. The placenta delivered without complication at 2038. The placenta was noted to be intact with a central umbilical cord insertion site. The cervix was inspected and no lacerations were noted. The vaginal wall was inspected and a first-degree left sidewall vaginal tear was noted. This was not bleeding significantly and no suturing was needed. Currently the uterus is firm and the patient's bleeding is scant. Currently both the and mother are doing well. Coding Level of Care Code Acute Certified Medical Technician for Rickey Ansari
[2020-09-17] MEDS: sertraline 100 mg Tablet PO (23:12)
[2020-09-17] MEDS: HYDROcodone-acetaminophen 5-325 mg Tablet PO (23:55)
[2020-09-18] VITALS (14 sets, daily range): BP systolic 110–156; BP diastolic 58–91; PULSE 78–100; RESP 16–18; TEMP 36–36.8
[2020-09-18] MEDS: miSOPROStol 200 mcg Tablet 800 MCG PR ×2 (01:04→13:20)
[2020-09-18] MEDS: HYDROcodone-acetaminophen 5-325 mg Tablet PO (06:10)
[2020-09-18 09:35] LABS: Hematocrit 27.7 % (37.0-47.0); Hemoglobin 9.3 g/dL (11.5-15.3); Mean Corpuscular HGB Conc 33.6 g/dL (30.0-36.0); Mean Corpuscular Hemoglobin 30.2 pg (28.0-34.0); Mean Corpuscular Volume 89.9 fL (81-99); Mean Platelet Volume 9.8 fL (7.4-10.4); Platelet Count 337 10^3/cmm (130-400); Red Blood Count 3.08 10^6/uL (4.1-5.3); Red Cell Distribution Width 13.3 % (12.1-15.1); White Blood Count 13.1 10^3/uL (4.0-10.0)
[2020-09-18] MEDS: ibuprofen 800 mg tablet PO ×3 (10:33→20:44)
[2020-09-18] MEDS: prenatal vitamin Capsule 1 CAP PO (10:33)
[2020-09-18] MEDS: docusate sodium 100 mg Capsule PO ×2 (10:34→20:44)
[2020-09-18] MEDS: ferrous sulfate EC 325 mg Tablet PO (20:44)
[2020-09-18] MEDS: sertraline 100 mg Tablet PO (20:45)
--- NOTE | 2020-09-18 21:00 | P.PN_ITS ---
Subjective Subjective: Interval history: The patient is feeling and was given another dose of Cytotec. Her bleeding is starting to improve. Hemoglobin is only slightly decreased at this time. The patient is ambulating, voiding, passing gas and tolerating food by mouth. Vitals/I&O/Wt Last Vital Signs Temp 96.8 F L 09/18/20 20:49 Pulse 91 09/18/20 20:49 Resp 18 09/18/20 10:15 BP 110/65 09/18/20 20:49 09/18/20 09/18/20 09/18/20 06:59 14:59 22:59 Intake Total 610 / 3424.584 Output Total 900 / 900 Balance -290 / 2524.584 Weight last 48 hrs Weight 246 lb Physical Exam Narrative: EXAM NARRATIVE: General: Alert and oriented x3 Eyes: Pupils equal round and reactive to light and accommodation Mouth: Mucous membranes moist, pharynx non-erythematous Cardiac: Regular rate and rhythm without murmurs Lungs: Clear to auscultation bilaterally without wheezes, crackles or rhonchi Abdomen: Soft, non-tender, fundus is firm and midline and currently above the umbilicus. Extremities: +1 edema in the bilateral lower extremities Data : 09/19/20 04:35 09/16/20 23:50 A&P Assessment and plan (1) Spontaneous vaginal delivery: Status: Acute Additional A&P Information The patient had some unusual bleeding that improved with Cytotec and Pitocin as well as tranexamic acid. The bleeding initially did well and then increased again and she had a large blood clot that passed. She was given another dose of Cytotec and her bleeding has significantly decreased. The patient is doing well overall. We will watch her overnight to be sure that her bleeding continues to improve. Her uterus is now below the umbilicus after passing a large blood clot. We will recheck hemoglobin to be sure that it is stable. Patient's blood pressures are currently in the normal to high normal range. Attestations Medical Necessity Statement*: The patient continues need inpatient care as we follow continued bleeding after delivery. Her stay will cross 2 midnights. Coding Level of Care Code Acute Repairer Resistance Welding Machines for Rickey Ansari Diagnoses Spontaneous vaginal delivery O80
[2020-09-19 04:40] VITALS: RESP 16; TEMP 36.2
[2020-09-19 04:41] VITALS: BP 124/73; PULSE 87
[2020-09-19 04:54] LABS: Basophils # 0.1 10^3/uL (0.0-0.1); Basophils % 0.4 %; Eosinophils # 0.3 10^3/uL (0.0-0.8); Eosinophils % 2.3 %; Hematocrit 26.4 % (37.0-47.0); Hemoglobin 8.7 g/dL (11.5-15.3); Lymphocytes # 4.7 10^3/uL (0.8-4.8); Lymphocytes % 37.2 %; Mean Corpuscular Hemoglobin 30.2 pg (28.0-34.0); Mean Corpuscular Volume 91.7 fL (81-99); Mean Platelet Volume 9.8 fL (7.4-10.4); Monocytes # 0.6 10^3/uL (0.2-0.9); Monocytes % 4.8 %; Neutrophils # 6.85 10^3/uL (1.8-7.7); Neutrophils % 54.7 %; Nucleated Red Blood Cells % 0 %; Platelet Count 356 10^3/cmm (130-400); Red Blood Count 2.88 10^6/uL (4.1-5.3); Red Cell Distribution Width 13.6 % (12.1-15.1); White Blood Count 12.5 10^3/uL (4.0-10.0)
--- NOTE | 2020-09-19 07:05 | PM.DCS ---
Discharge Providers Date of Admission: 09/16/20 22:12 Date of Discharge: September 19, 2020 Attending Provider at Admission: Kp Etienne MD Attending Provider at Discharge: Kp Etienne MD Primary Care Provider: Kp Etienne MD Diagnoses at Discharge Other Information Additional DC diagnoses/information: 1. Intrauterine status post spontaneous vaginal delivery at 39.3 weeks gestation 2. GBS positive 3. Gestational hypertension without severe features 4. Anxiety on sertraline 5. COVID-19 infection during first trimester 6. Delivery of healthy female weighing 7 pounds 4 ounces with Apgars of 6 and 8 7. Mild hemorrhage Reason for Visit Reason for Visit: induction Hospital Course Hospital Course Pre-Delivery Course: The patient presented to labor and delivery for induction of labor secondary to gestational hypertension on the evening of 09/16/2020. She was given Cytotec x3 doses and her cervix changed to 2 cm dilation. IV Pitocin was started and she made change to 4 cm. Her labor was stalling, so AROM was performed at 1800 on 09/17/2020. Clear fluid was noted. From this point the patient continued to make more rapid change and was complete by 2027 on 09/17/2020. Delivery: The patient began pushing at 2028 on 09/17/2020 and the descended rapidly. The was born in the OA position at 2028 on 09/17/2020. A nuchal cord was present and reduced. The left shoulder was the anterior shoulder and it delivered with downward pressure. The rest the delivered with ease. The mouth and nose were bulb suctioned by myself and the infant was placed on the mother's chest. The infant was initially blue and had little respiratory effort. The cord was clamped by myself and cut by the 's mother. The infant was taken to the warmer. Cord blood was obtained and the cord was drained of blood. Traction was placed on the cord and uterine massage was done. The placenta delivered without complication at 2038. The placenta was noted to be intact with a central umbilical cord insertion site. The cervix was inspected and no lacerations were noted. The vaginal wall was inspected and a first-degree left sidewall vaginal tear was noted. This was not bleeding significantly and no suturing was needed. : The patient had some bleeding that did not improve and she was given a dose of Cytotec. She was continued on IV Pitocin. Her bleeding persisted so she was given TXA and her bleeding improved. The next morning she was noted to have a firm but large uterus that was above the umbilicus. She passed a large blood clot and started having heavier bleeding again. For this reason she was given another dose of Cytotec. After this the bleeding decreased significantly and she has had no further complications with bleeding. Her hemoglobin did drop from 11.2 to 8.2 at discharge. The patient is fatigued, however is stable. Her blood pressures have been decreasing well and are not in the severe range. She does not have any symptoms related to this. The patient is now ambulating, voiding, passing gas and tolerating food by mouth. The patient is in agreement with discharge home at this time. All questions were answered. Physical Exam Narrative: EXAM NARRATIVE: General: Alert and oriented x3 Eyes: Pupils equal round and reactive to light and accommodation Mouth: Mucous membranes moist, pharynx non-erythematous Cardiac: Regular rate and rhythm without murmurs Lungs: Clear to auscultation bilaterally without wheezes, crackles or rhonchi Abdomen: Soft, non-tender, fundus is firm and midline and 2 cm below the umbilicus Extremities: +1 edema in the bilateral lower extremities Discharge Data Data Completed and Pending: Labs from last 24 hours 09/19/20 09/18/20 04:35 09:12 WBC 12.5 H 13.1 H RBC 2.88 L 3.08 L Hgb 8.7 L 9.3 L Hct 26.4 L 27.7 L MCV 91.7 89.9 MCH 30.2 30.2 MCHC 33.0 33.6 RDW 13.6 13.3 Plt Count 356 337 MPV 9.8 9.8 Neut % (Auto) 54.7 Lymph % (Auto) 37.2 [place] % (Auto) 4.8 Eos % (Auto) 2.3 Baso % (Auto) 0.4 Neut # (Auto) 6.85 Lymph # (Auto) 4.7 [place] # (Auto) 0.6 Eos # (Auto) 0.3 Baso # (Auto) 0.1 Nucleated RBC % (a uto) 0 Nucleated RBCs # 0.0 Vitals: Last Vital Signs Temp 97.2 F L 09/19/20 04:40 Pulse 87 09/19/20 04:41 Resp 16 09/19/20 04:40 BP 124/73 09/19/20 04:41 Discharge Plan Discharge Patient Disposition: Home Condition: Good Prescriptions: New ibuprofen 800 mg Tablet 800 mg PO TID Qty: 60 RF: 0 ferrous sulfate 325 mg (65 mg iron) Tablet,Delayed Release (Dr/Ec) 325 mg PO BIDWM 30 Days Qty: 60 RF: 0 Continued sertraline [Zoloft] 100 mg tablet 100 mg PO DAILY Qty: 30 RF: 2 hydroxyzine HCl 50 mg tablet 50 mg PO BID PRN (Reason: insomnia) Qty: 60 RF: 2 ProAir HFA 90 mcg/actuation Hfa Aerosol Inhaler 1 - 2 puff INHALATION Q4H PRN (Reason: Shortness Of Breath) RF: 0 albuterol sulfate 90 mcg/actuation HFA aerosol inhaler 2 inh INHALATION Q4H PRN (Reason: shortness of breath or wheezing) Qty: 18 RF: 0 Discontinued silver sulfadiazine [Silvadene] 1 % cream 1 applic topical BID 14 Days Qty: 20 RF: 0 aspirin [Adult Aspirin Regimen] 81 mg tablet,delayed release (DR/EC) 81 mg PO .HS RF: 0 Discharge Orders: Discharge Order (Routine); Ordered 09/19/20 Ordered By: Kp Etienne Referrals: Kp Etienne MD [Primary Care Provider] - 10/31/20 9:00 am Discharge Diet: Regular Discharge Activity: Increase activity as tolerated Patient Instructions: Ibuprofen (By mouth), Vitamins (By mouth), Lanolin (On the skin), Breast Care for the Breast Feeding Mother (GEN), Caring for Your Breastfed Baby (GEN), Bleeding (GEN), OB Discharge Report, Opioid Safety, OB Your Care - [facility], Abnormal Bleeding Activity Restrictions/Additional Instructions: Nothing per vagina for 6 weeks. Showers are okay, however I recommend against baths and swimming for the first 6 weeks. Keep an eye on your blood pressure and if you are having problems with it being elevated, please call [facility]. Discharge Attestations Time Spent in Discharge Care*: greater than 30 min Quality Metrics Clinical Quality Measures During this hospital stay, did patient experience: None Coding Level of Care Code Acute Chg FW DC note
[2020-09-19] MEDS: ibuprofen 800 mg tablet PO (09:06)
[2020-09-19] MEDS: ferrous sulfate EC 325 mg Tablet PO (09:06)
[2020-09-19] MEDS: docusate sodium 100 mg Capsule PO (09:06)
[2020-09-19] MEDS: prenatal vitamin Capsule 1 CAP PO (09:06)
[2020-09-19 09:18] VITALS: BP 131/72; PULSE 115; PULSE 123; O2SAT 98
[2020-09-19 10:07] VITALS: RESP 20; TEMP 36.7
== END 2020-09-19 11:00 | disposition home or self-care (01) | DRG 807 ==
PROVIDERS: Admitting Provider Family Medicine; PCP Family Medicine; Visit Provider Family Medicine
DX: O13.4 Gestational [pregnancy-induced] hypertension without significant proteinuria, complicating childbirth (principal); Z37.0 Single live birth; O99.344 Other mental disorders complicating childbirth; F41.9 Anxiety disorder, unspecified; O99.824 Streptococcus B carrier state complicating childbirth; O69.2XX0 Labor and delivery complicated by other cord entanglement, with compression, not applicable or unspecified; O67.8 Other intrapartum hemorrhage; O72.1 Other immediate postpartum hemorrhage; Z3A.39 39 weeks gestation of pregnancy; Z86.16 Personal history of COVID-19
CPT/HCPCS: 36415; 59025; 59409; 80053; 81001; 81003; 84550; 85025; 85027; 98960; J0290; J2405

== ENCOUNTER → 2020-10-01 10:02 | Outpatient (BNVA) | payer OTHER, SELFPAY | PROVIDERS: PCP Family Medicine; Visit Provider Counselor Professional | DX: F33.1 Major depressive disorder, recurrent, moderate (principal); F41.1 Generalized anxiety disorder; F43.12 Post-traumatic stress disorder, chronic | CPT/HCPCS: 90834 ==

== ENCOUNTER → 2020-10-10 08:04 | Outpatient (BNVA) | payer OTHER, SELFPAY | PROVIDERS: PCP Family Medicine; Visit Provider Counselor Professional | DX: F33.1 Major depressive disorder, recurrent, moderate (principal); F41.1 Generalized anxiety disorder; F43.12 Post-traumatic stress disorder, chronic | CPT/HCPCS: 90834 ==

== ENCOUNTER → 2021-05-25 16:48 | Outpatient (BNVA) | payer OTHER, SELFPAY | PROVIDERS: PCP Family Medicine; Visit Provider Nurse Practitioner Family | DX: Z20.822 Contact with and (suspected) exposure to COVID-19 (principal); J45.20 Mild intermittent asthma, uncomplicated | CPT/HCPCS: 87635 ==

== ENCOUNTER 2021-11-24 06:09 | Outpatient (CLI) | payer OTHER, MEDICAID, SELFPAY ==
--- NOTE | 2021-11-24 | US_ITS ---
WS: [id number] EARLY OBSTETRICAL ULTRASOUND (<14 WEEKS). HISTORY: DATING COMPARISON: None available. Single intrauterine gestational sac is identified. Cardiac activity at 153 BPM. Mimbres-rump length matthew sures 1.6 cm which corresponds to a gestation of 8w0d. Normal-appearing yolk sac and amnion demonstra maday. No subchorionic hemorrhage. No free fluid. Neither ovary is identified. US/US OB >= 14 weeks fetus [id number] IMPRESSION: 1. Single intrauterine gestation of 8 weeks 0 days with an EDC of 07/06/2022. 2. Normal cardiac activity.
== END 2021-11-24 06:10 | disposition home or self-care (01) ==
PROVIDERS: PCP Family Medicine; Visit Provider Family Medicine
DX: O09.90 Supervision of high risk pregnancy, unspecified, unspecified trimester (principal); Z3A.08 8 weeks gestation of pregnancy
CPT/HCPCS: 76805; 80307; 81000; 81025; 84443; 85025; 86592; 86762; 86850; 86900; 87086; 87340; 87806

== ENCOUNTER 2022-02-16 15:10 | Outpatient (CLI) | payer OTHER, SELFPAY ==
--- NOTE | 2022-02-16 15:00 | US_ITS ---
WS: [id number] OBSTETRICAL ULTRASOUND COMPLETE HISTORY: Anatomy US COMPARISON: 11/24/2021 Single intrauterine gestation in Cephalic presentation. Cervix is Closed and normal length. Cervical length is 5.2 cm. Normal amount of amniotic fluid surrounds the fetus. Placenta: Anterior, no previa or abruption. Placenta grade 0 Heart: 144 BPM. Four chambers are identified. RIGHT and LEFT outflow tracts are unremarkable. Anatomy: Intracranial structures and spine are normal. kidneys, stomach and urinary bladd er are unremarkable. Abdominal wall, three-vessel cord and cord insertion site are normal. 4 extremities are present. profile: Limited. Gender: Male. measurements: BPD = 4.9 cm = 20w6d HC = 18.4 cm = 20w6d AC = 15.6 cm = 20w5d FL = 3.6 cm = 21w2d EFW: 392 g. Biometry is internally concordant. AGA by ultrasound: 21w0d GUNJAN by ultrasound: 06/29/2022 US/US OB >= 14 weeks fetus [id number] IMPRESSION: 1. Single intrauterine gestation of 21w0d with an GUNJAN of 06/29/2022. 2. Limited visualization of the profile due to position. Otherwise anato my is negative.
== END 2022-02-16 15:11 | disposition home or self-care (01) ==
LOC: RAD 15:11
PROVIDERS: PCP Family Medicine; Visit Provider Family Medicine
DX: Z34.80 Encounter for supervision of other normal pregnancy, unspecified trimester (principal); Z3A.21 21 weeks gestation of pregnancy
CPT/HCPCS: 76805

== ENCOUNTER → 2022-03-09 12:56 | Outpatient (BNVA) | payer OTHER, SELFPAY | PROVIDERS: PCP Family Medicine; Visit Provider Registered Nurse Neonatal Intensive Care | DX: J02.9 Acute pharyngitis, unspecified (principal); R11.0 Nausea; J06.9 Acute upper respiratory infection, unspecified | CPT/HCPCS: 87070; 87071; 87400; 87880 ==

== ENCOUNTER → 2022-03-16 10:26 | Outpatient (BNVA) | payer OTHER, SELFPAY | PROVIDERS: PCP Family Medicine; Visit Provider Nurse Practitioner Family | DX: J02.9 Acute pharyngitis, unspecified (principal) | CPT/HCPCS: 87071; 87880 ==

== ENCOUNTER → 2022-03-18 09:12 | Outpatient (BNVA) | payer OTHER, SELFPAY | PROVIDERS: PCP Family Medicine; Visit Provider Clinical Nurse Specialist Adult Health | DX: J02.9 Acute pharyngitis, unspecified (principal) | CPT/HCPCS: 87880 ==

== ENCOUNTER → 2022-04-13 11:45 | Outpatient (BNVA) | payer OTHER, SELFPAY | PROVIDERS: PCP Family Medicine; Visit Provider Family Medicine | DX: Z34.80 Encounter for supervision of other normal pregnancy, unspecified trimester (principal) | CPT/HCPCS: 82950 ==

== ENCOUNTER → 2022-05-11 14:59 | Outpatient (BNVA) | payer OTHER, SELFPAY | PROVIDERS: PCP Family Medicine; Visit Provider Family Medicine | DX: R30.0 Dysuria (principal) | CPT/HCPCS: 81000; 87086 ==

== ENCOUNTER → 2022-05-25 11:10 | Outpatient (BNVA) | payer OTHER, SELFPAY | PROVIDERS: PCP Family Medicine; Visit Provider Family Medicine | DX: O23.40 Unspecified infection of urinary tract in pregnancy, unspecified trimester (principal); Z3A.00 Weeks of gestation of pregnancy not specified; R35.0 Frequency of micturition; Z51.81 Encounter for therapeutic drug level monitoring | CPT/HCPCS: 81000; 85025; 87086 ==

== ENCOUNTER → 2022-06-16 13:17 | Outpatient (BNVA) | payer OTHER, SELFPAY | PROVIDERS: PCP Family Medicine; Visit Provider Family Medicine | DX: Z34.90 Encounter for supervision of normal pregnancy, unspecified, unspecified trimester (principal) | CPT/HCPCS: 87081 ==

== ENCOUNTER 2022-06-24 00:02 | Inpatient (IN) | payer OTHER, MEDICAID, SELFPAY ==
[2022-06-24] VITALS (111 sets, daily range): BP systolic 106–154; BP diastolic 56–89; PULSE 71–111; RESP 16; TEMP 35.8–36.6; O2SAT 81–100; BMI 38.2
[2022-06-24 00:57] LABS: Basophils % 0.3 %; Eosinophils # 0.2 10^3/uL (0.0-0.8); Eosinophils % 2.1 %; Hematocrit 32.1 % (37.0-47.0); Hemoglobin 10.8 g/dL (11.5-15.3); Lymphocytes # 2.6 10^3/uL (0.8-4.8); Lymphocytes % 23.8 %; Mean Corpuscular HGB Conc 33.6 g/dL (30.0-36.0); Mean Corpuscular Hemoglobin 29.5 pg (28.0-34.0); Mean Corpuscular Volume 87.7 fl (81-99); Mean Platelet Volume 9.5 fL (7.4-10.4); Monocytes # 0.7 10^3/uL (0.2-0.9); Monocytes % 6.4 %; Neutrophils # 7.25 10^3/uL (1.8-7.7); Neutrophils % 66.8 %; Nucleated Red Blood Cells % 0 %; Platelet Count 353 10^3/cmm (130-400); Red Blood Count 3.66 10^6/uL (4.1-5.3); Red Cell Distribution Width 13.8 % (12.1-15.1); White Blood Count 10.9 10^3/uL (4.0-10.0)
[2022-06-24] MEDS: miSOPROStol 100 mcg tablet 25 MCG VAGINAL ×2 (00:57→05:35)
--- NOTE | 2022-06-24 08:43 | PM.HP ---
Providers/Chief Complaint Admitting Physician: Kp Etienne MD Primary Care Provider: Kp Etienne MD Chief Complaint: INDUCTION OF LABOR History of Present Illness Amber Walker is a 26 year old @ 39.0 weeks by LMP consistent with 8 wk US. Preg c/b anxiety on Sertraline, h/o preeclampsia at 38 weeks, h/o mild hemorrhage. The patient presented to labor delivery triage on the morning of 06/24/2022 for a scheduled induction of labor. The patient has a history of precipitous delivery and preeclampsia and requested to deliver at 39 weeks to decrease risk of complications of either of these. The patient feels well at this time. She denies any headaches, shortness of breath, chest pains, fever, vomiting, diarrhea, constipation, leakage of fluid, vaginal bleeding. Medications/Allergies Home Medications Medication Instructions Recorded Confirmed Last Taken Type albuterol sulfate 90 mcg/actuation 1 - 2 puff inhalation Q4H PRN 03/04/20 06/24/22 03/04/20 06:30 History aerosol inhaler (ProAir HFA) Shortness Of Breath 1 puff prenat.vits,elysia,[id number] 1 tab PO DAILY 10/13/20 06/24/22 06/23/22 20:30 History fluticasone propionate 44 1 puff inhalation BID #10.6 grams 03/09/22 06/24/22 Unknown Rx mcg/actuation HFA aerosol inhaler (Flovent HFA) inhalational spacing device #1 ea 03/09/22 06/24/22 Unknown Rx (Aerochamber MV spacer) hydroxyzine HCl 25 mg tablet 25 mg PO BID 03/16/22 06/24/22 2 Months Ago History ~04/23/22 Breast pump and supplies #1 ea 05/19/22 06/24/22 Unknown Rx sertraline 100 mg tablet 100 mg PO BID 06/24/22 06/24/22 06/23/22 20:30 History Allergies Allergy/AdvReac Type Severity Reaction Status Date / Time cephalexin [From Keflex] Allergy Intermediate Bodywide Verified 06/24/22 00:50 pain PFSH Acute PFSH: Medical History Generalized anxiety disorder Major depressive disorder, recurrent, moderate Moderate persistent asthma Preeclampsia Surgical History S/P tonsillectomy Family History Other Migraines Social History Smoking and tobacco status: never smoked Alcohol intake: never Current gender identity: Female Female Reproductive History: Date of last menstrual period: 06/28/19 : 5 Vitals/I&O/Wt Last Vital Signs Pulse 87 06/24/22 08:12 BP 126/64 06/24/22 08:12 O2 Del Method 06/24/22 03:00 Weight last 48 hrs Weight 244 lb Physical Exam Narrative: General: Alert and oriented x3 Eyes: Pupils equal round and reactive to light and accommodation Mouth: Mucous membranes moist, pharynx non-erythematous Cardiac: Regular rate and rhythm without murmurs Lungs: Clear to auscultation bilaterally without wheezes, crackles or rhonchi Abdomen: Soft, non-tender, fundus consistent with gestational age Extremities: Trace edema in the bilateral lower extremities Data 06/24/22 00:30 A&P Assessment and plan (1) Supervision of normal intrauterine in multigravida: The patient she received 2 doses of Cytotec and is currently paty every 45 minutes. heart tones are in the mid 140s with moderate variability good accelerations with a category 1 tracing. The patient is GBS negative. We will likely proceed with IV Pitocin after her 4 hours is up. Plan discussed with patient and she would like to have an epidural when she gets to 3 to 4 cm. All questions were answered. The patient and her are in agreement with current plan of care. Attestations Medical Necessity Statement*: The patient will be here for greater than 2 midnights due to routine intrapartum and management of labor and delivery. Coding Level of Care Code Acute Code for Chg Fwd Diagnoses Supervision of normal intrauterine in multigravida Z34.80
[2022-06-24] MEDS: oxytocin 30 UNIT/500 ML BAG IV (10:30)
[2022-06-24] MEDS: lactated ringers 1,000 ML 999 ML IV ×2 (12:11→13:13)
--- NOTE | 2022-06-24 13:39 | ANES.PROC ---
Anesthesia Procedures Procedure/Date: 06/24/22 Epidural: Time Out Performed: Yes Consents Signed: Procedure Consent and NPO Consent Consent: requested by attending/covering physician, risks and benefits reviewed and patient agrees to proceed Lumbar Level: L2-L3 Epidural position: sitting Epidural procedure: sterile prep of area, 1% lidocaine to numb the area, test dose given, 1.5% xylocaine 1:200k epi, 0.2% Ropivacaine bolus ml (5 ml), placed PCEA, sterile dressing applied and 0.2% Ropiavacaine @ mls/hr (13)
[2022-06-24] MEDS: ondansetron 2 mg/ML SDV 2 mL 4 MG IVP (15:32)
[2022-06-24] MEDS: hyDROXYzine 25 mg Capsule 50 MG PO (16:00)
[2022-06-24] MEDS: miSOPROStol 200 mcg Tablet 800 MCG PR (19:45)
--- NOTE | 2022-06-24 20:28 | P.PCNOB_ITS ---
Delivery Note: Date of delivery: June 24, 2022 Pre-delivery diagnoses: 1. Intrauterine at 39.0 weeks gestation 2. Anxiety on sertraline 3. History of preeclampsia 4. History of mild hemorrhage 5. Asthma 6. Anemia Post-delivery diagnoses: 1. Intrauterine status post spontaneous vaginal delivery at 39.0 weeks gestation 2. Anxiety on sertraline 3. History of preeclampsia 4. History of mild hemorrhage 5. Asthma 6. Anemia 7. Mild hemorrhage status post IV Pitocin, Cytotec and TXA. 8. Delivery of infant male weighing 8 pounds 11 ounces with Apgars of 6, 6 and 7 Procedure: Spontaneous vaginal delivery Delivering Physician: Kp Etienne MD Estimated blood loss (mL): 500 Findings: 1. Intact placenta with central umbilical cord insertion site 2. male with respiratory distress shortly after . Pre-Delivery Course: Amber Walker is a 26 year old G5 now P4 status post spontaneous vaginal delivery @ 39.0 weeks by LMP consistent with 8 wk US. Her was complicated by anxiety on Sertraline, h/o preeclampsia at 38 weeks, h/o mild hemorrhage, asthma, mild hemorrhage. The patient presented to labor and delivery on the accounts receivable administrator of 06/24/2022 for a scheduled induction of labor. She was 2 cm dilated and was started on Cytotec. She was given 2 doses and made change to a Alonso score of 5. She began to contract regularly and was given IV Pitocin to augment her labor. The patient had regular contractions and made change to 4 cm and received a laboring epidural. She then slowed down and was 4 to 5 cm at 1734 on 06/24/2022. AROM was performed at that time to augment labor and clear fluid was noted. The patient then made gradual change and was complete at 1916 on 06/24/2022. Delivery: The patient had lots of pressure and began pushing at 1923 on 06/24/2022. She pushed with 2 contractions and the infant's head delivered in the OA position at 1926 and 10 seconds. The 's left shoulder was anterior and turned to the maternal left. With initial pressure it did not deliver. Trying to deliver the right shoulder it did not deliver either. I have returned to the left shoulder and it did deliver with pressure. A small pop was felt. This was followed by the rest of the delivering without further complication. The infant delivered at 1926 and 50 seconds. There was terminal meconium present. The infant's mouth and nose were bulb suctioned by myself. The infant made a weak cry initially. The was placed on the mother's chest where the nurses were waiting to care for him. The 's cord was clamped by myself after approximately 50 seconds and cut by the 's father. Cord blood was then obtained. The cord was then drained of blood and traction was placed on the umbilical cord. Uterine massage was carried out and the placenta delivered without complication at 1930. IV Pitocin was bolused. The placenta was noted to be intact with a central umbilical cord insertion site. The uterus was massaged and there was moderate bleeding. The cervix was inspected and no lacerations were noted. The vaginal wall was inspected and no lacerations were noted. The patient's bleeding then picked up. Because of this, Cytotec 800 mcg was placed rectally and TXA was started. The patient's bleeding has gradually decreased since then. The initially needed respiratory support but is currently doing well and in the room with mother. History History History 5 Term 4 0 Miscarriages/Ectopic 1 Living Children 4 Past Pregnancies Del. Date GA/Weeks Outcome Route Wt Inf Gender Labor Lgth Comp. Anesth esia [facility] 06/03/15 39 live - full term Vaginal 7 lb Female 12 [facility] 01/07/17 spontaneous Vaginal 02/08/18 40 live - Vaginal 8 lb 3 oz Female 6 hours Oth er [facility] 09/17/20 39 live - Vaginal 7 lb 4 oz Female 24 hours hemorrhage [facility] 06/24/22 39 live - full term Vaginal 8 lb 11 oz Male 16 hr s hemorrhage Low apgars [facility] Delivery Date: 06/03/15 Last Updated by: Kp Etienne MD Preeclampsia quickly at 38 weeks, episiotomy Delivery Date: 02/08/18 Last Updated by: Kp Etienne MD 40.1 weeks, GBS positive, anxiety, no epidural Delivery Date: 09/17/20 Last Updated by: Kp Etienne MD 1. Intrauterine status post spontaneous vaginal delivery at 39.3 weeks gestation 2. GBS positive 3. Gestational hypertension without severe features 4. Anxiety on sertraline 5. COVID-19 infection during first trimester 6. Delivery of healthy female weighing 7 pounds 4 ounces with Apgars of 6 and 8 7. Mild hemorrhage A&P Assessment and plan (1) Spontaneous vaginal delivery: Coding Level of Care Code Acute Code for Chg Fwd Diagnoses Spontaneous vaginal delivery O80
[2022-06-24] MEDS: sertraline 100 mg Tablet PO (21:02)
[2022-06-24] MEDS: oxytocin 30 UNIT/500 ML BAG 600 UNIT IV (21:52)
[2022-06-24] MEDS: dextrose 5%-lactated ringers 1,000 ML 125 ML IV (21:52)
[2022-06-24] MEDS: acetaminophen 325 mg Tablet 650 MG PO (23:53)
[2022-06-25] VITALS (9 sets, daily range): BP systolic 108–134; BP diastolic 55–86; PULSE 82–97; RESP 16; TEMP 36.7; O2SAT 97
[2022-06-25 06:49] LABS: Hemoglobin 10.2 g/dL (11.5-15.3); Mean Corpuscular Hemoglobin 30.3 pg (28.0-34.0); Mean Platelet Volume 9.6 fL (7.4-10.4); Platelet Count 294 10^3/cmm (130-400); Red Blood Count 3.37 10^6/uL (4.1-5.3); Red Cell Distribution Width 13.8 % (12.1-15.1)
--- NOTE | 2022-06-25 07:52 | ANES.PREANE2 ---
Pre-Anesthetic Assessment Height/Weight: Height 1.7 m Weight 110.677 kg Temp Pulse Resp BP Pulse Ox O2 Del Method 97.9 F 82 16 108/55 100 06/24/22 18:54 06/25/22 06:28 06/24/22 23:54 06/25/22 06:28 06/24/22 15:53 06/24/22 23:54 Familial anesthetic complications: none Was Beta Gracie taken within 24 hours: N/A Was Clonidine taken within 24 hours: N/A Social No alcohol and No tobacco Exam alert, oriented x 3, clear to auscultation bilaterally and regular rate & rhythm Airway Submandibular: within normal limits Cervical ROM: within normal limits Mallampati: Class II Pulmonary Asthma Neuropsych Anxiety and Depression Anesthetic Plan ASA status: 2 Anesthesia: Regional (specify below) (Labor epidural) Medications/Allergies Home Medications Medication Instructions Recorded Confirmed Last Taken Type albuterol sulfate 90 mcg/actuation 1 - 2 puff inhalation Q4H PRN 03/04/20 06/24/22 03/04/20 06:30 History aerosol inhaler (ProAir HFA) Shortness Of Breath 1 puff prenat.vits,elysia,[id number] 1 tab PO DAILY 10/13/20 06/24/22 06/23/22 20:30 History fluticasone propionate 44 1 puff inhalation BID #10.6 grams 03/09/22 06/24/22 Unknown Rx mcg/actuation HFA aerosol inhaler (Flovent HFA) inhalational spacing device #1 ea 03/09/22 06/24/22 Unknown Rx (Aerochamber MV spacer) hydroxyzine HCl 25 mg tablet 25 mg PO BID 03/16/22 06/24/22 2 Months Ago History ~04/23/22 Breast pump and supplies #1 ea 05/19/22 06/24/22 Unknown Rx sertraline 100 mg tablet 100 mg PO BID 06/24/22 06/24/22 06/23/22 20:30 History Allergies Allergy/AdvReac Type Severity Reaction Status Date / Time cephalexin [From Keflex] Allergy Intermediate Bodywide Verified 06/24/22 00:50 pain Current Medications Generic Name Dose Route Start Last Admin Trade Name Freq PRN Reason Stop Dose Admin Acetaminophen 650 mg 06/24/22 00:23 06/24/22 23:53 Acetaminophen 325 Mg Tablet PO 650 mg Q6H PRN Administration MILD TO MODERATE PAIN Hydroxyzine Pamoate 50 mg 06/24/22 00:24 06/24/22 16:00 Hydroxyzine 25 Mg Capsule PO 50 mg QID PRN Administration sleep, agitation or itching Dextrose/Lactated Ringer's 1,000 mls @ 125 mls/hr 06/24/22 00:23 06/24/22 23:05 Dextrose 5%-Lactated Ringers IV Infused .Q8H PRN Infusion per label comments Oxytocin 30 unit in 500 mls @ 600 mls/hr 06/24/22 00:24 06/24/22 22:42 Pitocin IV Infused .Q50M PRN Titration After delivery of infant Protocol Tranexamic Acid 1,000 mg/ 110 mls @ 330 mls/hr 06/24/22 00:24 06/24/22 20:05 Sodium Chloride IV Infused Q30M PRN Infusion BLEEDING Lactated Ringer's 1,000 mls @ 999 mls/hr 06/24/22 00:41 06/24/22 14:14 Lactated Ringers IV Infused .Q1H1M PRN Infusion See label comments Oxytocin 30 unit in 500 mls @ 1 mls/hr 06/24/22 09:45 06/24/22 23:33 Pitocin IV Infused .Q24H SRI Titration Protocol 1 MILLIUNIT/MIN Ropivacaine 200 mg in 100 mls @ 13 mls/hr 06/24/22 12:15 06/25/22 04:34 Naropin Premix EPIDURAL Not Given .Q7H42M SRI Ondansetron HCl 4 mg 06/24/22 00:23 06/24/22 15:32 Ondansetron 2 Mg/Ml Sdv 2 Ml IVP 4 mg Q4H PRN Administration NAUSEA AND VOMITING Sertraline HCl 100 mg 06/24/22 09:00 06/24/22 21:02 Sertraline 100 Mg Tablet PO 100 mg DAILY SRI Administration PFSH Anesthesia Medical History Generalized anxiety disorder Major depressive disorder, recurrent, moderate Moderate persistent asthma Preeclampsia Surgical History S/P tonsillectomy Family History Other Migraines Social History Smoking and tobacco status: never smoked Alcohol intake: never Current gender identity: Female Female Reproductive History Date of last menstrual period: 06/28/19 : 5 Data Anesthesia 06/25/22 06:25 Short CBC 06/24/22 06/25/22 Range/Units 00:30 06:25 WBC 10.9 H 12.0 H (4.0-10.0) 10^3/uL Hgb 10.8 L 10.2 L (11.5-15.3) g/dL Hct 32.1 L 30.0 L (37.0-47.0) % MCV 87.7 89.0 (81-99) fl Plt Count 353 294 (130-400) 10^3/cmm Neut % (Auto) 66.8 % Neut # (Auto) 7.25 (1.8-7.7) 10^3/uL Blood Bank 06/24/22 00:30 Blood Type O Positive Rho(D) Type Positive Antibody Screen Negative Cardiac Studies: No Data to Display
[2022-06-25] MEDS: ibuprofen 800 mg tablet PO ×3 (08:16→20:46)
[2022-06-25] MEDS: prenatal vitamin Capsule 1 CAP PO (08:16)
[2022-06-25] MEDS: docusate sodium 100 mg Capsule PO ×2 (08:16→20:46)
--- NOTE | 2022-06-25 11:08 | PM.PN ---
Subjective Subjective: The patient is doing well overall at this time. She does have some lower pelvic pain but it is currently controlled with Motrin alone. Her bleeding is decreasing well. She is ambulating, voiding, passing gas and tolerating food by mouth. Vitals/I&O/Wt Last Vital Signs Temp 97.9 F 06/24/22 18:54 Pulse 83 06/25/22 08:15 Resp 16 06/24/22 23:54 BP 119/65 06/25/22 08:15 Pulse Ox 100 06/24/22 15:53 O2 Del Method 06/24/22 23:54 06/24/22 06/25/22 06/25/22 22:59 06:59 14:59 Intake Total 1218 / 3250.0 1209.6 / 4459.6 Output Total 200 / 200 300 / 500 Balance 1018 / 3050.0 909.6 / 3959.6 Weight last 48 hrs Weight 244 lb Physical Exam Narrative: General: Alert and oriented x3 Cardiac: Regular rate and rhythm without murmurs Lungs: Clear to auscultation bilaterally without wheezes, crackles or rhonchi Abdomen: Soft, mild tenderness over uterus. The uterus is firm and 2 cm below the umbilicus. Extremities: Trace edema in the bilateral lower extremities Urinary Catheter Management: Sanchez: Cath Placed During This Visit: yes, but has since been removed by the nurse Reason for Continuing Indwelling Catheter: Accurate Measurement of Urinary Output in Critically Ill Patients Urinary Catheter Date of Insertion: 06/24/22 Urinary Catheter Time of Insertion: 13:50 Date Urinary Catheter Removed: 06/24/22 Time Urinary Catheter Discontinued: 19:18 Data 06/25/22 06:25 A&P Assessment and plan (1) Spontaneous vaginal delivery: The patient is showing signs of improvement overall. Her bleeding is decreasing well. She is ambulating, voiding, passing gas and tolerating food by mouth. Continue with current medications. Attestations Medical Necessity Statement*: The patient will be here for greater than 2 midnights due to routine intrapartum and management of labor and delivery. Coding Level of Care Code Acute Code for Chg Fwd Diagnoses Spontaneous vaginal delivery O80
--- NOTE | 2022-06-25 12:00 | PM.DCS ---
Discharge Providers Date of Admission: 06/24/22 00:02 Date of Discharge: June 25, 2022 Attending Provider at Admission: Kp Etienne MD Attending Provider at Discharge: Kp Etienne MD Primary Care Provider: Kp Etienne MD Diagnoses at Discharge Discharge Diagnosis (1) Spontaneous vaginal delivery: Status: Acute Other Information Additional DC diagnoses/information: 1.? Intrauterine status post spontaneous vaginal delivery at 39.0 weeks gestation 2.? Anxiety on sertraline 3.? History of preeclampsia 4.? History of mild hemorrhage 5.? Asthma 6.? Anemia 7.? Mild hemorrhage status post IV Pitocin, Cytotec and TXA. 8.? Delivery of infant male weighing 8 pounds 11 ounces with Apgars of 6, 6 and 7? Reason for Visit Reason for Visit: INDUCTION OF LABOR Brief History: Amber Walker is a 26 year old G5 now P4 status post spontaneous vaginal delivery @ 39.0 weeks by LMP consistent with 8 wk US.? Her was complicated by anxiety on Sertraline, h/o preeclampsia at 38 weeks, h/o mild hemorrhage, asthma, mild hemorrhage. The patient presented to labor and delivery on the automat watcher of 06/24/2022 for a scheduled induction of labor.? She was 2 cm dilated and was started on Cytotec.? Hospital Course Hospital Course She was given 2 doses and made change to a Alonso score of 5.? She began to contract regularly and was given IV Pitocin to augment her labor.? The patient had regular contractions and made change to 4 cm and received a laboring epidural.? She then slowed down and was 4 to 5 cm at 1734 on 06/24/2022.? AROM was performed at that time to augment labor and clear fluid was noted.? The patient then made gradual change and was complete at 1916 on 06/24/2022. The patient had lots of pressure and began pushing at 1923 on 06/24/2022.? She pushed with 2 contractions and the 's head delivered in the OA position at 1926 and 10 seconds.? The infant's left shoulder was anterior and turned to the maternal left.? With initial pressure it did not deliver.? Trying to deliver the right shoulder it did not deliver either.? I have returned to the left shoulder and it did deliver with pressure.? A small pop was felt.? This was followed by the rest of the delivering without further complication.? The infant delivered at 1926 and 50 seconds.? There was terminal meconium present.? The infant's mouth and nose were bulb suctioned by myself.? The infant made a weak cry initially.? The infant was placed on the mother's chest where the nurses were waiting to care for him.? The infant's cord was clamped by myself after approximately 50 seconds and cut by the 's father.? Cord blood was then obtained.? The cord was then drained of blood and traction was placed on the umbilical cord.? Uterine massage was carried out and the placenta delivered without complication at 1930.? IV Pitocin was bolused.? The placenta was noted to be intact with a central umbilical cord insertion site.? The uterus was massaged and there was moderate bleeding.? The cervix was inspected and no lacerations were noted.? The vaginal wall was inspected and no lacerations were noted.? The patient's bleeding then picked up.? Because of this, Cytotec 800 mcg was placed rectally and TXA was started.? The patient's bleeding gradually improved. the patient has done well. Her bleeding has decreased well. She is ambulating, voiding, passing gas and tolerating food by mouth. The patient is stable for discharge and routine discharge instructions were discussed. All questions were answered. The patient is breast-feeding. We will plan for routine follow-up in clinic next week and 6 weeks . Physical Exam Narrative: General: Alert and oriented x3 Cardiac: Regular rate and rhythm without murmurs Lungs: Clear to auscultation bilaterally without wheezes, crackles or rhonchi Abdomen: Soft, mild tenderness over uterus. The uterus is firm and 2 cm below the umbilicus. Extremities: Trace edema in the bilateral lower extremities Urinary Catheter Management: Sanchez: Cath Placed During This Visit: yes, but has since been removed by the nurse Reason for Continuing Indwelling Catheter: Accurate Measurement of Urinary Output in Critically Ill Patients Urinary Catheter Date of Insertion: 06/24/22 Urinary Catheter Time of Insertion: 13:50 Date Urinary Catheter Removed: 06/24/22 Time Urinary Catheter Discontinued: 19:18 Discharge Data Studies Completed and Pending Laboratory Results WBC 12.0 10^3/uL (4.0-10.0) H 06/25/22 06:25 RBC 3.37 10^6/uL (4.1-5.3) L 06/25/22 06:25 Hgb 10.2 g/dL (11.5-15.3) L 06/25/22 06:25 Hct 30.0 % (37.0-47.0) L 06/25/22 06:25 MCV 89.0 fl (81-99) 06/25/22 06:25 MCH 30.3 pg (28.0-34.0) 06/25/22 06:25 MCHC 34.0 g/dL (30.0-36.0) 06/25/22 06:25 RDW 13.8 % (12.1-15.1) 06/25/22 06:25 Plt Count 294 10^3/cmm (130-400) 06/25/22 06:25 MPV 9.6 fL (7.4-10.4) 06/25/22 06:25 Neut % (Auto) 66.8 % 06/24/22 00:30 Lymph % (Auto) 23.8 % 06/24/22 00:30 Cochran % (Auto) 6.4 % 06/24/22 00:30 Eos % (Auto) 2.1 % 06/24/22 00:30 Baso % (Auto) 0.3 % 06/24/22 00:30 Neut # (Auto) 7.25 10^3/uL (1.8-7.7) 06/24/22 00:30 Lymph # (Auto) 2.6 10^3/uL (0.8-4.8) 06/24/22 00:30 Cochran # (Auto) 0.7 10^3/uL (0.2-0.9) 06/24/22 00:30 Eos # (Auto) 0.2 10^3/uL (0.0-0.8) 06/24/22 00:30 Baso # (Auto) 0.0 10^3/uL (0.0-0.1) 06/24/22 00:30 Nucleated RBC % (auto) 0 % 06/24/22 00:30 Nucleated RBCs # 0.0 /100WBC 06/24/22 00:30 Blood Type O Positive 06/24/22 00:30 Rho(D) Type Positive 06/24/22 00:30 Antibody Screen Negative 06/24/22 00:30 Vitals Last Vital Signs Temp 98.1 F 06/25/22 21:39 Pulse 84 06/25/22 21:39 Resp 16 06/25/22 21:39 BP 134/86 06/25/22 21:39 Pulse Ox 97 06/25/22 21:39 O2 Del Method 06/24/22 23:54 Discharge Plan Discharge Patient Disposition: Home Prescriptions: Continued prenat.vits,elysia,[id number] Tablet 1 tab PO DAILY fluticasone propionate [Flovent HFA] 44 mcg/actuation HFA aerosol inhaler 1 puff inhalation BID Qty: 10.6 1RF Rx Instructions: administer with spacer hydroxyzine HCl 25 mg tablet 25 mg PO BID albuterol sulfate [ProAir HFA] 90 mcg/actuation Hfa Aerosol Inhaler 1 - 2 puff INHALATION Q4H PRN (Reason: Shortness Of Breath) Discontinued sertraline 100 mg tablet 100 mg PO BID Rx Instructions: TAKE ONE TABLET ONCE DAILY DIRECTED No Action (DME) Aerochamber MV Spacer See Rx Instructions .Route Qty: 1 0RF Rx Instructions: As directed dicloxacillin 500 mg capsule 500 mg PO Q6H Qty: 40 0RF sertraline 150 mg capsule 150 mg PO DAILY (DME) Breast pump and supplies See Rx Instructions .Route .MEDSUPPLY Qty: 1 0RF Rx Instructions: As directed Discharge Orders: Discharge Order (Routine); Ordered 06/25/22 Ordered By: Kp Etienne Referrals: Kp Etienne MD [Primary Care Provider] - 6 Weeks Discharge Diet: Usual diet and As Directed Patient Instructions: Depression (DC), Bleeding (DC), Preeclampsia and Eclampsia After Delivery (GEN), OB Discharge Report, OB Food/Drug Interaction Guide, Opioid Safety, OB [facility], OB Vaginal Deliveries Activity Restrictions/Additional Instructions: Call Dr Etienne's office Tuesday to schedule 6 week follow-up appointment. Discharge Attestations Time Spent in Discharge Care*: greater than 30 min Quality Metrics Clinical Quality Measures [ No reported AMI, CVA or VTE this stay] Coding Level of Care Code Acute Code for Chg Fwd Diagnoses Spontaneous vaginal delivery O80
[2022-06-25] MEDS: sertraline 100 mg Tablet PO (20:46)
--- NOTE | 2022-06-25 21:35 | PC.NURSE ---
Advised patient we would call in the following prescriptions to be picked up at pharmacy for her: Ibuprofen 800mg, Twice a day by mouth Ferrous Sulfate 325mg, Once a day by mouth Sertraline 150mg, Once a day by mouth Patient states that she has all these medications at home and does not want them called into pharmacy. States she will contact physician if she requires a refill and will obtain Ibuprofen and Ferrous Sulfate OTC.
== END 2022-06-25 22:20 | disposition home or self-care (01) | DRG 806 ==
PROVIDERS: Admitting Provider Family Medicine; PCP Family Medicine; Visit Provider Family Medicine
DX: O77.0 Labor and delivery complicated by meconium in amniotic fluid (principal); O72.1 Other immediate postpartum hemorrhage; Z37.0 Single live birth; O99.344 Other mental disorders complicating childbirth; Z3A.39 39 weeks gestation of pregnancy; F41.1 Generalized anxiety disorder; O75.89 Other specified complications of labor and delivery; J45.40 Moderate persistent asthma, uncomplicated; Z86.16 Personal history of COVID-19; O90.81 Anemia of the puerperium; D64.9 Anemia, unspecified
CPT/HCPCS: 36415; 51702; 59025; 59409; 85025; 85027; 86850; 86900; 96374; 96376; 98960; J2405; J2590; J2795; J3010; J3490; J7120; J7121

== ENCOUNTER → 2022-08-25 10:09 | Outpatient (BNVA) | payer OTHER, MEDICAID, SELFPAY | PROVIDERS: PCP Family Medicine; Visit Provider Family Medicine | DX: Z51.81 Encounter for therapeutic drug level monitoring (principal); R23.3 Spontaneous ecchymoses | CPT/HCPCS: 85025 ==

== ENCOUNTER → 2024-11-07 15:52 | Outpatient (BNVA) | payer OTHER, SELFPAY | PROVIDERS: PCP Family Medicine; Visit Provider Nurse Practitioner Women's Health | DX: Z01.419 Encounter for gynecological examination (general) (routine) without abnormal findings (principal) | CPT/HCPCS: 88175 ==

== ENCOUNTER → 2024-12-26 11:41 | Outpatient (BNVA) | payer OTHER, SELFPAY | PROVIDERS: PCP Family Medicine; Visit Provider Podiatrist Foot & Ankle Surgery | DX: L60.3 Nail dystrophy (principal) | CPT/HCPCS: 36415; 80053 ==

== ENCOUNTER 2025-02-06 05:00 | Outpatient (RCR) | payer OTHER, SELFPAY | END 2025-03-08 23:59 | disposition home or self-care (01) | LOC: SPT 05:00 | PROVIDERS: PCP Family Medicine; Visit Provider Nurse Practitioner Women's Health | DX: N81.6 Rectocele (principal) | CPT/HCPCS: 97110; 97140; 97161; 97530 ==

== ENCOUNTER → 2025-02-06 12:17 | Outpatient (BNVA) | payer OTHER, SELFPAY | PROVIDERS: PCP Family Medicine; Visit Provider Podiatrist Foot & Ankle Surgery | DX: B35.1 Tinea unguium (principal); L60.8 Other nail disorders; L60.3 Nail dystrophy | CPT/HCPCS: 36415; 80053 ==